=== PATIENT | female | born 1995 | race Caucasian/White ===

== ENCOUNTER 2017-06-08 18:14 | Emergency (ER) | payer BC, OTHER ==
[~2017-06-08] VITALS: Ht 162.6 cm; Wt 54.8 kg
[~2017-06-08 18:14] MED LIST: RIVA1TAB4 PO; [UNRECOGNIZED DRUG - CODE] PO
[2017-06-08 18:25] VITALS: TEMP 36.8; Ht 162.6 cm; Wt 54.8 kg
[2017-06-08] MEDS ORDERED: KETOROLAC TROMETHAMINE 30 MG/ML VIAL IV STA (19:37)
[2017-06-08] MEDS ORDERED: SODIUM CHLORIDE 0.9% 1000ML 1,000 ML IV ONE (19:45)
[2017-06-08 20:11] LABS: BASO % 0.2 %; BASO ABS # 0.02 K/uL (0-0.2); COMPLETE YES; EOS % 2.3 %; HEMATOCRIT 42.9 % (37-47); IG% 0.2 %; LYMPH ABS # 2.11 K/uL (1.2-3.4); MEAN CELL VOLUME 95.1 fL (80-100); MEAN CORPUSCULAR HEMOGLOBIN 33.3 pg (25-34); MEAN PLATELET VOLUME 8.9 fL (7.4-10.4); MONO % 11.2 %; NEUT % 67.1 %; PLATELET COUNT 234 K/uL (130-400); RED BLOOD COUNT 4.51 M/uL (4.2-5.4); WHITE BLOOD COUNT 11.11 K/uL (4.8-10.8)
[2017-06-08] MEDS ORDERED: OPTIRAY 320 IV PRN (20:15)
[2017-06-08 20:28] LABS: BUN/CREATININE RATIO 7.9 (10-20); CALCIUM 9.1 mg/dl (8.5-10.1); CREATININE 0.78 mg/dl (0.60-1.20); POTASSIUM 3.5 mmol/L (3.5-5.1)
[2017-06-08 20:31] LABS: ALB/GLOB RATIO 1.2 (0.9-2)
[2017-06-08] MEDS ORDERED: ONDANSETRON INJ 2 MG/ML 2 ML VIAL IV STA (20:39)
--- NOTE | 2017-06-08 21:24 | DIAGNOSTIC IMAGING REPORT ---
FACIAL-MAXILLOFACIAL WITH CLINICAL HISTORY: 22 years-old Female presenting with Right side facial pain after dental procedure. TECHNIQUE: Multidetector CT of the face was performed after the administration of intravenous contrast. IV contrast: 116 mL of Optiray 320. A dose lowering technique was used consistent with the principles of ALARA (as low as reasonably achievable). COMPARISON: 12/12/2014. CT DOSE (mGy.cm): The estimated cumulative dose is 128.47 mGy.cm. 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 Previously demonstrated comminuted displaced bilateral nasal bone fractures are no longer apparent. Extensive inflammatory change noted along the buccal mucosa of the mandibular and maxillary teeth with multifocal hyperdensities evident. These are of uncertain etiology. No significant cortical erosion of the mandible is evident. No periapical lucency noted at the maxillary or mandibular teeth. Paranasal sinuses and mastoid air cells clear. Limited intracranial evaluation within normal limits. Orbits normal. Prominence of the bilateral tonsillar and adenoidal lymphoid tissue, likely reactive. Resulting mild narrowing of the oropharynx. IMPRESSION: Inflammatory change along the buccal mucosa of the mandible and maxilla. No associated odontogenic or periapical abscess. Diffuse hyperattenuation within the inflammatory change may represent surgical material. Correlate with oral exam. Likely reactive enlargement of tonsillar and adenoidal lymphoid tissue with resulting mild narrowing of the oropharynx. Electronically signed by: Daniel Recinos M.D. 06/08/2017 9:23 PM Dictated Date/Time: 06/08/2017 9:17 PM
[2017-06-08] MEDS ORDERED: AMPICILLIN/SULBACTAM SOD INJ 3,000 MG in SODIUM CHLORIDE 0.9% 100ML 100 ML IV STA (21:32)
[2017-06-08] MEDS ORDERED: AMOX875T PO (22:23)
[2017-06-08 22:44] VITALS: BP 127/70; PULSE 85; O2SAT 100
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
== END 2017-06-08 22:45 | disposition home or self-care (01) ==
LOC: C.EDB 18:15
DX: K04.7 Periapical abscess without sinus (principal); F41.9 Anxiety disorder, unspecified; I26.99 Other pulmonary embolism without acute cor pulmonale; Z82.49 Family history of ischemic heart disease and other diseases of the circulatory system; F17.200 Nicotine dependence, unspecified, uncomplicated

== ENCOUNTER 2017-11-06 09:01 | Emergency (ER) | payer BC, OTHER ==
[~2017-11-06] VITALS: Ht 160 cm; Wt 55.7 kg
[2017-11-06 09:05] VITALS: Ht 160 cm; Wt 55.7 kg
[2017-11-06] MEDS ORDERED: TRAM-10 PO (09:25)
[2017-11-06] MEDS ORDERED: ONDANSETRON INJ 2 MG/ML 2 ML VIAL IV STA (09:30)
[2017-11-06] MEDS ORDERED: KETOROLAC TROMETHAMINE 30 MG/ML VIAL IV STA (09:30)
[2017-11-06] MEDS ORDERED: DEXAMETHASONE INJ 10 MG in SYRINGE 0 ML IV STA (09:30)
[2017-11-06] MEDS ORDERED: MoRPHine SULFATE 4 MG/ML 1 ML CARP\\VIAL IV STA ×2 (09:30→10:50)
[2017-11-06] MEDS ORDERED: DEXAMETHASONE **PF** INJ 10 MG/ML VIAL ONE (09:54)
[2017-11-06] MEDS ORDERED: METH4PAK PO (11:54)
[2017-11-06] MEDS ORDERED: OXYC1TAB3 PO (11:54)
[2017-11-06 12:15] VITALS: BP 118/77; PULSE 74; TEMP 36.4; O2SAT 100
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
== END 2017-11-06 12:16 | disposition home or self-care (01) ==
LOC: C.EDB 09:02 → C.EDC 12:16
DX: M54.16 Radiculopathy, lumbar region (principal); M41.9 Scoliosis, unspecified; F41.9 Anxiety disorder, unspecified; Z86.711 Personal history of pulmonary embolism; Z82.49 Family history of ischemic heart disease and other diseases of the circulatory system; Z83.3 Family history of diabetes mellitus; Z83.6 Family history of other diseases of the respiratory system; Z84.1 Family history of disorders of kidney and ureter; F17.200 Nicotine dependence, unspecified, uncomplicated

== ENCOUNTER 2017-12-03 09:15 | Emergency (ER) | payer BC, OTHER ==
[~2017-12-03] VITALS: Ht 162.6 cm; Wt 56.2 kg
[~2017-12-03 09:15] MED LIST changes: +OXYC1TAB3 PO; -RIVA1TAB4 PO; +TRAM-10 PO; -[UNRECOGNIZED DRUG - CODE] PO
[2017-12-03 09:21] VITALS: TEMP 36.5; Ht 162.6 cm; Wt 56.2 kg
[2017-12-03] MEDS ORDERED: SODIUM CHLORIDE 0.9% 1000ML 1,000 ML IV STA (09:46)
[2017-12-03] MEDS ORDERED: ONDANSETRON INJ 2 MG/ML 2 ML VIAL IV STA (09:46)
[2017-12-03] MEDS ORDERED: AMOX500C3 PO (09:51)
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
[2017-12-03 10:06] LABS: HEMATOCRIT 35.1 % (37-47); HEMOGLOBIN 12.5 g/dL (12.0-16.0); MEAN CELL VOLUME 90.2 fL (80-100); MEAN CORPUSCULAR HEMOGLOBIN 32.1 pg (25-34); MEAN CORPUSCULAR HGB CONC 35.6 g/dl (32-36); MEAN PLATELET VOLUME 7.9 fL (7.4-10.4); PLATELET COUNT 441 K/uL (130-400); RED CELL DISTRIBUTION WIDTH CV 12.2 % (11.5-14.5); WHITE BLOOD COUNT 9.41 K/uL (4.8-10.8)
[2017-12-03] MEDS: HYDROmorphone INJ 0.5 MG/0.5 ML SYR IV PRN ×4 (10:11→14:36)
[2017-12-03 10:23] LABS: ALBUMIN 3.5 gm/dl (3.4-5.0); ALT/SGPT 24 U/L (12-78); AST/SGOT 13 U/L (15-37); BLOOD UREA NITROGEN 10 mg/dl (7-18); CARBON DIOXIDE 24 mmol/L (21-32); CREATININE 0.76 mg/dl (0.60-1.20); GLUCOSE 78 mg/dl (70-99); LIPASE 110 U/L (73-393); POTASSIUM 3.4 mmol/L (3.5-5.1); SODIUM 137 mmol/L (136-145)
[2017-12-03 10:24] LABS: BASO % 0.4 %; BASO ABS # 0.04 K/uL (0-0.2); EOS ABS # 0.56 K/uL (0-0.5); IG# 0.07 K/uL (0.00-0.02); LYMPH ABS # 3.01 K/uL (1.2-3.4); MONO % 10.3 %; MONO ABS # 0.97 K/uL (0.11-0.59); NEUT % 50.6 %; NEUT ABS # 4.76 K/uL (1.4-6.5)
[2017-12-03 10:26] LABS: ALKALINE PHOSPHATASE 80 U/L (45-117); TOTAL PROTEIN 7.7 gm/dl (6.4-8.2)
--- NOTE | 2017-12-03 14:47 | DIAGNOSTIC IMAGING REPORT ---
MRI OF THE THORACIC SPINE WITH AND WITHOUT CONTRAST CLINICAL HISTORY: Recent surgery with hardware removal. Pain and swelling. COMPARISON STUDY: Chest CT August 30, 2016. TECHNIQUE: Utilizing a 1.5 Ivonne magnet and dedicated coil, multiplanar, multiecho imaging of the thoracic spine was performed pre and postcontrast administration. Injection of 5.5 cc of Gadavist IV was uneventful. FINDINGS: Vertebral body heights are maintained. There is no suspicious marrow replacement or marrow edema. No intracanalicular mass or fluid collection is present. Thoracic vertebral caliber are normal. There is no intracanalicular mass or fluid collection. A few perineural cyst/lateral meningoceles are noted. Central canal and neural foramen are patent. There is no disc herniation. There has been interval removal of the thoracolumbar spine scoliosis hardware from the T10-L4 levels. Multiple fluid collections are noted, including a small 1.9 x 0.6 cm subcutaneous fluid collection at the T7-T8 level. Note is made of a subcutaneous fluid collection that extends from the upper T12 level through the L5 level that measures 9 mm in AP dimension and 2.5 cm in transverse dimension. In addition, there is a deeper operative bed fluid collection immediately overlying the posterior elements that measures 1.3 cm in AP dimension and 5.1 cm in transverse dimension. This deeper fluid collection extends from the T11-L4 levels and is at the site of hardware removal. These collections demonstrate nonspecific peripheral enhancement. IMPRESSION: 1. Large operative bed fluid collection that extends from T11 through L4 and measures 1.3 cm in AP dimension and 5.1 cm in transverse dimension. This collection is at site of hardware removal and immediately posterior to the posterior elements. This collection is nonspecific and not unexpected if recent surgery. This could reflect a seroma. Less likely, this could reflect a resolving hematoma. A pseudomeningocele could appear similar although is considered less likely. Sterility cannot be assessed by MRI. 2. Subcutaneous fluid collection that extends from T12 through L5 as described above. This is also nonspecific although favors a seroma. Sterility cannot be assessed by MRI. 3. No intracanalicular abnormality. 4.. Additional third tiny subcutaneous fluid collection at T7-T8 level that measures 1.9 x 0.6 cm. Electronically signed by: Connor Monzon M.D. 12/03/2017 2:46 PM Dictated Date/Time: 12/03/2017 2:26 PM
--- NOTE | 2017-12-03 15:03 | DIAGNOSTIC IMAGING REPORT ---
MRI OF THE LUMBAR SPINE WITH AND WITHOUT CONTRAST CLINICAL HISTORY: recent surgery, pain and swelling COMPARISON STUDY: No previous studies for comparison. TECHNIQUE: Utilizing a 1.5 Ivonne magnet and dedicated coil, multiplanar, multiecho imaging of the lumbar spine was performed before and after uneventful IV administration of 5.5 mL of Gadavist. FINDINGS: There are postoperative findings consistent with recent scoliosis hardware removal from T10 through L4. There is no intracanalicular mass or fluid collection. Conus terminates at the upper L1 level. There is no abnormal intracanalicular enhancement. There is mild levoscoliosis of the lumbar spine. Vertebral body heights are maintained. There is no marrow edema or marrow replacement. Note is made of a subcutaneous fluid collection that extends from T 12 through L5 that has peripheral enhancement. This measures 8 mm in AP extent. There is also a deeper operative bed fluid collection that extends from T11 through L4 immediately posterior to the posterior elements at site of hardware removal. This collection measures 1.3 cm in AP dimension and demonstrates peripheral enhancement. L1-2: The central canal and neural foramen are patent. L2-3: The central canal neural foramen are patent. L3-4: The central canal and neural foramen are patent. L4-5: The central canal and neural foramen are patent. L5-S1: The central canal and neural foramen are patent. IMPRESSION: 1. Large operative bed fluid collection that extends from T11 through L4 and measures 1.3 cm in AP dimension and 5.1 cm in transverse dimension. This collection is at site of hardware removal and immediately posterior to the posterior elements. This collection is nonspecific and not unexpected in the early postoperative setting. This could reflect a seroma. Less likely, this could reflect a resolving hematoma. A pseudomeningocele could appear similar although is considered less likely. Sterility cannot be assessed by MRI. Paraspinal muscle edema enhancement which is nonspecific in the early postoperative setting. 2. Subcutaneous fluid collection that extends from T12 through L5 as described above. This is also nonspecific although favors a seroma. Sterility cannot be assessed by MRI. 3. No intracanalicular abnormality. 4.. Patent central canal and neural foramen. No disc herniation. Electronically signed by: Connor Monzon M.D. 12/03/2017 3:01 PM Dictated Date/Time: 12/03/2017 2:44 PM
[2017-12-03] MEDS ORDERED: OXYC1TAB3 PO (15:38)
[2017-12-03 16:23] VITALS: BP 109/66; PULSE 88; O2SAT 100
== END 2017-12-03 15:50 | disposition home or self-care (01) ==
LOC: C.EDB 09:17 → C.EDA 15:50
DX: M96.842 Postprocedural seroma of a musculoskeletal structure following a musculoskeletal system procedure (principal); G89.18 Other acute postprocedural pain; F17.200 Nicotine dependence, unspecified, uncomplicated; Z88.1 Allergy status to other antibiotic agents; Z88.6 Allergy status to analgesic agent; Z86.711 Personal history of pulmonary embolism; Z80.9 Family history of malignant neoplasm, unspecified; Z82.49 Family history of ischemic heart disease and other diseases of the circulatory system; Z84.1 Family history of disorders of kidney and ureter

== ENCOUNTER 2021-08-14 23:49 | Inpatient (IN) ==
[2021-08-15] MEDS ORDERED: OXYTOCIN 30 UNITS/500 ML BAG IV PRN ×3 (00:39→07:42)
[2021-08-15] MEDS ORDERED: CALCIUM CARBONATE 500 MG CHEWABLE TAB PO PRN (01:00)
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
[2021-08-15 01:25] LABS: Hematocrit (blood only) 33.7 % (37-47); Hemoglobin 11.6 g/dL (12.0-16.0); Mean Corpuscular Hemoglobin 32.1 pg (25-34); Mean Corpuscular Hgb Conc 34.4 g/dL (32-36); Mean Corpuscular Volume 93.4 fL (80-100); Mean Platelet Volume 9.1 fL (7.4-10.4); Platelet Count 251 K/uL (130-400); RDW Coefficient of Variation 12.9 % (11.5-14.5); RDW Standard Deviation 44.1 fL (36.4-46.3); Red Blood Count 3.61 M/uL (4.2-5.4); White Blood Count 7.97 K/uL (4.8-10.8)
[2021-08-15] MEDS: LACTATED RINGER'S 1,000 ML IV PRN ×2 (03:20→04:33)
[2021-08-15] MEDS ORDERED: ePHEDrine sulfate 50 MG/ML AMP ONE (03:37)
[2021-08-15] MEDS ORDERED: SODIUM CHLORIDE 0.9% INJ 10 ML VIAL ONE (03:37)
[2021-08-15] MEDS ORDERED: BUPIVACAINE 0.25% 30 ML VIAL ONE (03:37)
[2021-08-15] MEDS ORDERED: fentaNYL 2MCG/ML ROPIVACAINE 1.25MG/ML 100 ML BAG EPI ONE (03:38)
[2021-08-15] MEDS ORDERED: fentaNYL citrate 100 MCG/2 ML VIAL ONE (03:38)
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
[2021-08-15] MEDS ORDERED: fentaNYL 2MCG/ML ROPIVACAINE 1.25MG/ML 100 ML BAG EPI PRN (04:34)
[2021-08-15] MEDS ORDERED: ONDANSETRON INJ 2 MG/ML 2 ML VIAL IV PRN (04:34)
[2021-08-15] MEDS ORDERED: NALOXONE HCL 0.4 MG/1 ML VIAL/CARP IV PRN (04:34)
[2021-08-15] MEDS ORDERED: ePHEDrine sulfate 50 MG/ML AMP IV PRN (04:34)
[2021-08-15] MEDS ORDERED: NALOXONE HCL 1 MG in SODIUM CHLORIDE 0.9% 1000ML 1,000 ML IV PRN (04:34)
[2021-08-15] MEDS ORDERED: ACETAMINOPHEN 325 MG TAB ONE (07:27)
--- NOTE | 2021-08-15 07:32 | Delivery Summary ---
Vaginal Delivery Summary Date of Service August 15, 2021 Vaginal Delivery Summary [facility] PREOPERATIVE DIAGNOSIS: 1. Single intrauterine at 37 5/7 wga 2. Spontaneous rupture of membranes 3. History of pulmonary embolism POSTOPERATIVE DIAGNOSIS: 1. Single intrauterine at 37 5/7 wga 2. Spontaneous rupture of membranes 3. History of pulmonary embolism 4. Delivered PROCEDURE: 1. Normal spontaneous vaginal delivery. SURGEON: Josefina Avendano MD ANESTHESIA: Epidural. ESTIMATED BLOOD LOSS: 300 mL FLUIDS: Continuous LR. URINE OUTPUT: None. COMPLICATIONS: None. CONDITION: Stable. INDICATIONS: 26 y/o at 37 5/7 wga presented with complaints of leaking of fluid earlier this morning. On arrival, she was found to be grossly ruptured. +FM and some back pain, denied vaginal bleeding. She was managed expectantly and progressed spontaneously. She received an epidural for pain control. She then progressed to complete and desired to push. FINDINGS: A viable female infant, weight pending with Apgars of 7 and 8 at 1 and 5 minutes respectively. SPECIMEN: Cord blood. OPERATIVE REPORT: The patient progressed to 10 cm, 100% effaced and +2 station, pushed over intact perineum with anesthesia to deliver a viable female infant, weight and Apgars as above. Head of delivered in ROSETTE position. Nuchal cord was noted and delivered through. Body and shoulders were delivered without difficulty. was delivered to maternal abdomen and nursing staff. Delayed cord clamping was deferred as infant was not vigorous. Cord was clamped and cut. Cord segment and blood were obtained with plan for cord gases however could not be obtained. Placenta delivered spontaneously intact with 3-vessel cord. IV oxytocin and fundal massage were given for excellent hemostasis. Vagina, cervix, perineum, and placenta were inspected. A left labial laceration was noted and repaired using 4-0 Vicryl. A first degree was noted and not needed to be repaired. Sponge and needle counts correct x2. No sponges were left behind. Mother and stable in immediate period. [facility] Vaginal Delivery Charge Vaginal Delivery Codes: 92549 global code for the antepartum, delivery, and post - Delivery Type Details: [facility]
[2021-08-15] MEDS ORDERED: HYDROCORTISONE ACETATE 25 MG SUPP PR PRN (07:42)
[2021-08-15] MEDS ORDERED: BENZOCAINE 20% AER SPR 82.5 GM CAN EXT PRN (07:42)
[2021-08-15] MEDS ORDERED: SUPERCREAM 0.870% 15 GM JAR EXT PRN (07:42)
[2021-08-15] MEDS ORDERED: DIPHTHERIA/TETANUS/PERTUSSIS 0.5 ML SYR/VIAL IM ONE (07:42)
[2021-08-15] MEDS ORDERED: bisacodyL 10 MG SUPP PR PRN (07:42)
[2021-08-15] MEDS: PRENATAL VITAMIN 1 TAB PO SCH (09:08)
[2021-08-15] MEDS ORDERED: Nursing to Pharmacy Communication SCH (09:15)
[2021-08-15] MEDS ORDERED: LOVENOX TEACHING KIT SCH (09:30)
[2021-08-15] MEDS: VENLAFAXINE HCL 37.5 MG TAB PO SCH (09:35)
--- NOTE | 2021-08-15 09:37 | Anesthesia Procedure Note ---
Date of Service August 15, 2021 Anesthesia Post Epidural Note Vital Signs Vital Signs: Temp Pulse Resp BP Pulse Ox 36.9 C 109 H 20 126/72 94 08/15/21 06:14 08/15/21 09:30 08/15/21 08:15 08/15/21 09:30 08/15/21 06:54 Notes Mental Status: alert / awake / arousable and participated in evaluation Nausea / Vomiting: adequately controlled Pain: adequately controlled Airway Patency, RR, SpO2: stable & adequate BP & HR: stable & adequate Hydration State: stable & adequate Neuraxial Anesthesia: was administered and sensory block is resolving Anesthetic Complications: no major complications apparent and Pt Satisfied with anesthetic care Epidural: Removed without complications and With tip intact
[2021-08-15] MEDS: ENOXAPARIN INJ 40 MG/0.4 ML SYR SQ SCH (09:38)
[2021-08-15] MEDS: DOCUSATE SODIUM 100 MG CAP PO SCH ×2 (11:04→20:12)
[2021-08-15] MEDS: IBUPROFEN 600 MG TAB PO PRN ×3 (12:04→20:52)
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
[2021-08-15] MEDS: ACETAMINOPHEN 325 MG TAB PO PRN ×2 (15:49→23:54)
[2021-08-16] MEDS: IBUPROFEN 600 MG TAB PO PRN ×2 (02:23→08:22)
--- NOTE | 2021-08-16 07:02 | Obstetrical Progress Note ---
Date of Service August 16, 2021 Assessment & Plan (1) History of pulmonary embolism: (2) care and examination of lactating mother: Doing well. Routine ppd#1 care. Continue teaching for lovejcx. Script sent to her pharmacy. Appreciate hematology input. Subjective Ambulation: ambulating normally Voiding: no voiding problems Passing Gas:: Yes Diet Tolerance:: regular diet Lochia:: Small Feeding Type:: breast feeding Physical Exam Constitutional WD/WN, vitals as above Cardiovascular Extremities: no calf tenderness and no edema Gastrointestinal (Abdomen) soft, nt, nd ff/nt at u Results & Data ([facility]) Vital Signs (Past 12 Hours) Vital Signs Temp Pulse Resp BP Pulse Ox 08/16/21 03:10 36.4 C L 80 18 122/77 100 08/15/21 23:35 36.6 C 84 16 110/63 100
[2021-08-16] MEDS: DOCUSATE SODIUM 100 MG CAP PO SCH (08:22)
[2021-08-16] MEDS: PRENATAL VITAMIN 1 TAB PO SCH (08:22)
[2021-08-16] MEDS: VENLAFAXINE HCL 37.5 MG TAB PO SCH (08:22)
[2021-08-16] MEDS: ENOXAPARIN INJ 40 MG/0.4 ML SYR SQ SCH (08:23)
[2021-08-16] MEDS ORDERED: bisacodyL 5 MG TABEC PO SCH (20:00)
[2021-08-20 23:51] LABS: Activated Protein C Resistance 4.4 ratio (>=2.1); Anti Cardiolipin Ab IgG <2.0 GPL-U/mL; Anti Cardiolipin Ab IgM <2.0 MPL-U/mL; Anti-Cardiolipin Ab IgA <2.0 APL-U/mL; Anti-Thrombin III Activity 94 % normal (80-135); B2 Glycoprotein IgA <2.0 U/mL (<20.0); B2 Glycoprotein IgG <2.0 U/mL (<20.0); B2 Glycoprotein IgM <2.0 U/mL (<20.0); PTT LA Screen 34 sec (<=40); Protein S Functional(Activity) 34 % (60-140)
[2021-08-22 17:26] LABS: Factor 5 Mutation NEGATIVE
== END 2021-08-16 14:20 | disposition home or self-care (01) | DRG 805 ==
LOC: OPB 23:49 → 4S1 23:53 → 4S2 08-15 10:55

== ENCOUNTER 2025-07-07 19:16 | Inpatient (IN) ==
[2025-07-07] MEDS: ONDANSETRON INJ 2 MG/ML 2 ML VIAL IV STA (19:56)
[2025-07-07] MEDS: SODIUM CHLORIDE 0.9% 1,000 ML IV SCH (19:57)
--- NOTE | 2025-07-07 20:00 | Emergency Department Note ---
Impression & Plan Hypotension, Diarrhea, Tachycardia, Acute dehydration, Adverse effect of chemotherapy, Hypocalcemia ED Provider Note NAME: ALEJANDRO BOUCHER AGE: 30 SEX: F : 1995 ARRIVES VIA: Walk-In INFORMANT: [Patient][family] ED PROVIDER(S): [Lokesh Slade MD] CHIEF COMPLAINT: Illness HISTORY OF PRESENT ILLNESS: The patient is a 30-year-old female with metastatic breast cancer. The cancer is spread to her liver and bone. She was in our ED 2 days ago for an allergic reaction from her second chemotherapy. The patient was discharged as she seemed to improve and did well. The patient states that for the last 2 days, she has had diarrhea, sometimes she has had some streaks of blood in the diarrhea. She has had nausea without any appetite. She has been dizzy and lightheaded and has felt faint. No actual vomiting. There has been no fever, no cough. She has some colicky abdominal pain associated with the diarrhea. No urinary complaints. PMHx/PSHx/Social Hx: See Below PHYSICAL EXAM: GENERAL: Patient is in no acute distress. HEENT: No acute trauma, normocephalic atraumatic, mucous membranes moist, no nasal congestion. NECK: No stridor, no adenopathy, no meningismus, trachea is midline. LUNGS: Clear to auscultation bilaterally, no wheeze, no rhonchi, breath sounds equal. HEART: Tachycardic with a regular rhythm, no murmurs. ABDOMEN: Soft, nontender, no peritonitis. EXTREMITIES: No cyanosis, full range of motion of all the joints without pain or difficulty. Mild bilateral pedal edema. NEUROLOGIC: Oriented x 3, no acute motor or sensory deficits, no focal weakness. SKIN: No jaundice, no diaphoresis. DIFFERENTIAL DIAGNOSIS: Dehydration, electrolyte imbalance, chemotherapy reaction, foodborne or viral illness, bacteremia or sepsis, among others. EMERGENCY DEPARTMENT PROCEDURES: MEDICAL DECISION MAKING: There is a pancytopenia, likely from her chemotherapy administration. Sodium was somewhat low, calcium was low. No renal failure. Lactic acid level was not elevated making severe sepsis less likely. There were some subtle liver enzyme elevations, likely from dehydration. TSH was high but the T4 was normal. ECG showed a sinus tachycardia, no ischemia. Cardiac enzyme testing x 1 is not consistent with acute cardiac injury. Total CK was not elevated making rhabdomyolysis unlikely. Chest x-ray did not show pneumonia or CHF. On exam, the patient was initially hypotensive and tachycardic. She was not febrile. The patient was given IV saline, 1 L. She was given IV lactated Ringer's 1 L. Her heart rate has improved, her blood pressure has improved. The patient received IV Phenergan and IV Zofran, she was given 2 g of IV calcium. The patient needs to stay in the hospital for further hydration, observation and care. I did speak with the patient and the family. The patient presents today dehydrated. Certainly, the chemotherapy regimen from a few days ago could be responsible for her presentation. Foodborne or viral illness is also possible. I spoke with case management, the on-call hospitalist was consulted. Prior/Outside records/notes reviewed: Previous ED visit note describing her presentation, findings and outpatient plan. ECG per my interpretation: Indication was tachycardia. The ECG shows a sinus tachycardia with a rate of 132. There is no ST elevation, no PVCs. The QTc is 432. Continuous Cardiac Monitoring per my interpretation: An order was placed for continuous cardiac monitoring. The monitor shows a rate of 131 with sinus tachycardia. Imaging/x-ray results per my interpretation: Chest x-ray does not show pneumonia or CHF. No mediastinal widening. Chronic Medical/Social conditions affecting care: History of breast cancer that has metastasized to the bones and liver. Care/Management discussed with: Case management and the on-call hospitalist. Level of care consideration(s): After review of the information above and other included data: --I believe the patient requires escalation of care to admission Critical Care Note: I have personally spent 49 minutes of critical care time in the direct management of this patient. This includes bedside care, interpretation of diagnostic studies, and testing, discussion with consultants, patient, and family members, and other required patient management activities. This 49 minutes is in excess of all separately billable procedures. DISPOSITION: Admission Past Med/Surg History Problem List (Updated 07/07/25 @ 22:33 by Lokesh Slade MD) Hypocalcemia (Acute) Adverse effect of chemotherapy (Acute) Acute dehydration (Acute) Tachycardia (Acute) Diarrhea (Acute) Hypotension (Acute) Near syncope (Acute) Headache (Acute) Hypocalcemia (Acute) Colitis Diarrhea (Acute) GI (gastrointestinal bleed) (Acute) Thyroid cancer Encounter for monitoring cardiotoxic drug therapy Chronic, continuous use of opioids Therapeutic opioid-induced constipation (OIC) Chemotherapy-induced neuropathy Thrush of mouth and esophagus Malignant neoplasm of breast metastatic to bone (Chronic) Advanced care planning/counseling discussion Nausea & vomiting Chronic pain after cancer treatment Cancer related pain Palliative care patient Adenocarcinoma of breast metastatic to liver Metastatic cancer to bone (Acute) Generalized anxiety disorder with panic attacks Bone lesion Breast mass (Acute) Liver lesion Ovarian mass, left Urinary tract infection symptoms Vaginitis Abnormal uterine bleeding Scoliosis (Acute) History of back surgery (Acute) Dental infection (Acute) Medical History Back pain Abdominal pain Generalized body aches Generalized weakness Abnormal liver ultrasound Elevated parathyroid hormone Elevated TSH Alkaline phosphatase elevation Right lumbar radiculitis History of pulmonary embolism 06/2016 tx w/ xarelto, no current anticoagulation. Sounds unprovoked Abnormal barium swallow Sore throat Encounter for pre-operative examination Ectopic SROM (spontaneous rupture of membranes) Anxiety Surgical History Port-A-Cath in place (05/23/25) Insertion of Left Internal Jugular Access Port(Left) - Mushtaq Alvarez DO, FACS History of thyroidectomy Previous back surgery Rods placed and removed Family History Grandmother (Maternal) Breast cancer Other No pertinent family history in first degree relatives Denies family history of Ovarian cancer Deep vein thrombosis Clotting disorder Colorectal cancer Pulmonary embolism Social History Smoking Status: Current every day smoker Tobacco Type: E-cigarettes / Vaping Second Hand Exposure: No; Do You Dip or Chew Tobacco: No; Hx Alcohol Use: No Hx Substance Use: No Preferred Language: Qatari Communication Ability: Effective Plastic Cutter Required: No Beliefs That Will Affect Care: None marital status: Single marital status details: does not want FOB listed. 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 Feels Safe at Home: Yes Diet: regular during the past year weight has: remained stable Assistive Devices: Glasses Allergies Allergies Allergy/AdvReac Type Severity Reaction Status Date / Time Cephalosporins Allergy Severe FACIAL Verified 06/13/25 08:31 SWELLING/HIVES vancomycin AdvReac Intermediate RED MAN Verified 06/13/25 08:31 SYNDROME Home Meds Home Medications Medication Instructions Recorded Confirmed methadone 10 mg tablet 30 mg PO Q8H 06/30/25 07/04/25 calcium 500 mg (as 1 tab PO BID 07/01/25 07/04/25 carbonate)-vitamin D3 5 mcg (200 unit) tablet (Oyster Shell Calcium-Vitamin D3) dexamethasone 6 mg tablet 3 mg PO BID 07/01/25 07/04/25 diclofenac sodium 1 % topical gel 4 g topical QID 07/01/25 07/04/25 (Arthritis Pain (diclofenac)) hydrocortisone 1 % topical cream 1 applic topical BID 07/01/25 07/04/25 lactulose 10 gram/15 mL oral 20 g PO DAILY PRN Constipation 07/01/25 07/04/25 solution lidocaine-prilocaine 2.5 %-2.5 % 1 applic topical DAILY PRN 1 Hour 07/01/25 07/04/25 topical cream prior to port access lorazepam 1 mg tablet 1 mg PO QID PRN 07/01/25 07/04/25 Anxiety/Panic/Nausea polyethylene glycol 3350 17 gram 17 g PO DAILY 07/01/25 07/01/25 oral powder packet prochlorperazine maleate 10 mg 10 mg PO Q6H PRN Nausea And 07/01/25 07/04/25 tablet Vomiting venlafaxine 75 mg tablet 75 mg PO QAM 07/01/25 07/01/25 zolpidem 10 mg tablet 10 mg PO HS PRN Sleep 07/01/25 07/01/25 levothyroxine 150 mcg tablet 112 mcg PO Q24H 07/04/25 (Synthroid) propranolol 20 mg tablet 20 mg PO BID 07/04/25 07/04/25 Previous Rx's Medication Instructions Recorded naloxone 4 mg/actuation nasal 1 spray intranasal Q3M #2 ea 05/28/25 spray (Narcan) ondansetron 8 mg disintegrating 8 mg PO DAILY sev cancer nausea 1 05/30/25 tablet month #90 tabs hydromorphone 8 mg tablet 8 mg PO Q4H PRN pain 1 month #180 06/13/25 (Dilaudid) tabs methylnaltrexone 8 mg/0.4 mL 8 mg (0.4 mL) subcut DAILY PRN 06/14/25 subcutaneous syringe (Relistor) opioid induced constipation 1 month #12 mL pantoprazole 40 mg tablet,delayed 40 mg PO BID #60 tabs 06/27/25 release pregabalin 100 mg capsule (Lyrica) 100 mg PO TID chemo neuropathy 30 06/27/25 days #90 caps promethazine 25 mg tablet 25 mg PO QID PRN nausea and 06/27/25 vomiting 1 month #120 tabs sennosides 8.6 mg-docusate sodium 2 tab-cap (2 x 8.6-50 mg) PO BID 07/04/25 50 mg capsule (Senna Plus) constipation 1 month #120 caps Results & Data (ED) Vital Signs Vital Signs - 24 hr 07/07/25 19:20 07/07/25 19:32 07/07/25 20:08 Temperature 36.3 C L Temperature Source Oral Pulse Rate 149 H 135 H Pulse Rate [Right Finger] 119 H Respiratory Rate 15 Blood Pressure 80/52 L Blood Pressure [Right Arm] 114/77 Blood Pressure Mean 61 Blood Pressure Mean [Right Arm] 89 Pulse Oximetry 100 98 Oxygen Delivery Method Room Air Room Air Sepsis Recent Fever Within 48 Hours No Sepsis New/Unexplained Change in Mental Status No Sepsis Action Taken by Nursing No Action Required 07/07/25 20:08 07/07/25 21:00 Temperature Temperature Source Pulse Rate Pulse Rate [Right Finger] 108 H Respiratory Rate 15 Blood Pressure Blood Pressure [Right Arm] 120/72 Blood Pressure Mean Blood Pressure Mean [Right Arm] 88 Pulse Oximetry 98 98 Oxygen Delivery Method Room Air Room Air Sepsis Recent Fever Within 48 Hours Sepsis New/Unexplained Change in Mental Status Sepsis Action Taken by Snf Medications Current Medication List: was personally reviewed by me Laboratory Data Attestation: I reviewed the patient's lab results. 07/07/25 19:57 07/07/25 19:57 Lab Results 07/07/25 Range/Units 19:57 WBC 3.85 L (4.8-10.8) K/ul RBC 3.37 L (4.20-5.40) M/uL Hgb 10.6 L (12.0-16.0) g/dl Hct 31.2 L (37.0-47.0) % MCV 92.6 (80.0-100.0) fL MCH 31.5 (25.0-34.0) pg MCHC 34.0 (32.0-36.0) g/dL RDW Std Deviation 59.1 H (36.4-46.3) fL RDW Coeff of Lesa 18.5 H (11.5-14.5) % Plt Count 123 L (130-400) K/uL MPV 9.0 L (9.4-12.4) fL Absolute Nucleated RBC 0.13 H (0.00-0.12) K/uL Nucleated RBC % (auto) 3.4 % Neutrophils % (Manual) 44 % Lymphocytes % (Manual) 25 % Monocytes % (Manual) 8 % Eosinophils % (Manual) 16 % Metamyelocytes % (Man) 2 % Myelocytes % (Man) 5 % Neutrophils # (Manual) 1.69 (1.40-6.50) K/uL Total Absolute Neuts 1.69 (1.4-6.5) K/uL Lymphocytes # (Manual) 0.96 L (1.2-3.4) K/uL Total Abs Lymphocytes 0.96 L (1.2-3.4) K/uL Monocytes # (Manual) 0.31 (0.11-0.59) K/uL Eosinophils # (Manual) 0.62 H (0-0.50) K/uL Metamyelocytes # (Man) 0.08 H (0-0) K/uL Myelocytes # (Manual) 0.19 H (0-0) K/uL Toxic Vacuolation 2+ Dohle Bodies 1+ Polychromasia 1+ Sodium 131 L (136-145) mmol/L Potassium 3.5 (3.5-5.1) mmol/L Chloride 98 (98-107) mmol/L Carbon Dioxide 26 (21-32) mmol/L Anion Gap 7 (3-11) BUN 12 (6-23) mg/dl Creatinine 0.67 (0.6-1.2) mg/dl Est Cr Clr Drug Dosing 122.3 ml/min eGFR 119.02 BUN/Creatinine Ratio 17.9 (10-20) Glucose 100 H (70-99(Fasting)) mg/dl Lactate 1.0 (0.4-2.0) mmol/L Calcium 7.5 L (8.6-10.3) mg/dl Magnesium 1.7 (1.7-2.4) mg/dl Total Bilirubin 1.9 H (0.2-1.0) mg/dl AST 12 L (13-39) U/L ALT 26 (7-52) U/L Alkaline Phosphatase 63 (34-104) U/L Total Creatine Kinase 45 (26-192) U/L Troponin I High Sens 6.0 (0-14) pg/ml Total Protein 5.0 L (6.0-8.3) gm/dl Albumin 2.5 L (3.4-5.0) gm/dl Globulin 2.5 (2.5-4.0) gm/dl Albumin/Globulin Ratio 1.0 (0.9-2) TSH 5.575 H (0.300-4.500) uIu/ml Free T4 0.87 (0.61-1.60) ng/dl Administered Medications Discontinued Medications Sodium Chloride (Nss) 1,000 mls @ 999 mls/hr IV .Q1H1M JOSEFA Stop: 07/07/25 20:45 Last Infusion: 07/07/25 20:53 Dose: Infused Documented By: Admin: 07/07/25 19:57 Dose: 999 mls/hr Documented By: ASW Promethazine HCl (Phenergan) 6.25 mg in 50.25 mls @ 201 mls/hr IV NOW STA Stop: 07/07/25 20:02 Last Infusion: 07/07/25 20:28 Dose: Infused Documented By: Admin: 07/07/25 20:10 Dose: 201 mls/hr Documented By: ASW Calcium Gluconate () 1,000 mg in 60 mls @ 240 mls/hr IV Q15M JOSEFA Stop: 07/07/25 21:14 Last Infusion: 07/07/25 21:37 Dose: Infused Documented By: Admin: 07/07/25 21:15 Dose: 240 mls/hr Documented By: Infusion: 07/07/25 21:14 Dose: Infused Documented By: Admin: 07/07/25 20:59 Dose: 240 mls/hr Documented By: ASW Lactated Ringer's (Lr) 1,000 mls @ 999 mls/hr IV .Q1H1M ONE Stop: 07/07/25 21:51 Last Infusion: 07/07/25 22:12 Dose: Infused Documented By: Admin: 07/07/25 20:59 Dose: 999 mls/hr Documented By: ELIZAW Ondansetron HCl (Ondansetron Inj 2 Mg/Ml 2 Ml Vial) 4 mg IV NOW STA Stop: 07/07/25 19:34 Last Admin: 07/07/25 19:56 Dose: 4 mg Documented By: ELIZAW Discharge Plan Visit Data Chief Complaint: Illness Stated Complaint: DEHYDRATED NAUSEA NOT EATING/DRINKING ED Provider: Lokesh Slade Discharge Problem: Hypotension, Diarrhea, Tachycardia, Acute dehydration, Adverse effect of chemotherapy, Hypocalcemia Patient Disposition: Admitted As Inpatient Condition: Serious Forms Stand Alone Forms: [facility] Prescriptions Prescriptions: No Action levothyroxine [Synthroid] 150 mcg tablet 112 mcg PO Q24H Relistor 8 mg/0.4 mL syringe 8 mg subcut DAILY PRN (Reason: opioid induced constipation) 30 Days Qty: 12 6RF ondansetron 8 mg tablet,disintegrating 8 mg PO DAILY 30 Days Qty: 90 5RF hydromorphone [Dilaudid] 8 mg tablet 8 mg PO Q4H PRN (Reason: pain) 30 Days Qty: 180 0RF Senna Plus 8.6-50 mg capsule 2 tab-cap PO BID 30 Days Qty: 120 3RF pantoprazole 40 mg tablet,delayed release (DR/EC) 40 mg PO BID Qty: 60 4RF pregabalin [Lyrica] 100 mg capsule 100 mg PO TID 30 Days Qty: 90 5RF promethazine 25 mg tablet 25 mg PO QID PRN (Reason: nausea and vomiting) 30 Days Qty: 120 4RF methadone 10 mg tablet 30 mg PO Q8H polyethylene glycol 3350 17 gram powder in packet 17 g PO DAILY dexamethasone 6 mg tablet 3 mg PO BID prochlorperazine maleate 10 mg tablet 10 mg PO Q6H PRN (Reason: Nausea And Vomiting) lidocaine-prilocaine 2.5-2.5 % cream 1 applic topical DAILY PRN (Reason: 1 Hour prior to port access) hydrocortisone 1 % cream 1 applic topical BID lorazepam 1 mg tablet 1 mg PO QID PRN (Reason: Anxiety/Panic/Nausea) lactulose 10 gram/15 mL solution 20 g PO DAILY PRN (Reason: Constipation) calcium carbonate-vitamin D3 [Oyster Shell Calcium-Vit D3] 500 mg-5 mcg (200 unit) tablet 1 tab PO BID Patient Comments: Unable to verify OTC meds at this date/time. 07/01/25 diclofenac sodium [Arthritis Pain (diclofenac)] 1 % gel 4 g topical QID Rx Instructions: APPLY 4 GRAMS TOPICALLY 4 TIMES DAILY TO HIP ,SINGLE KNEE , ANKLE, FOOT (INCLUDING SOLE , TOES, TOP OF FOOT) FOR PAIN FOR 1 MONTH venlafaxine 75 mg tablet 75 mg PO QAM zolpidem 10 mg tablet 10 mg PO HS PRN (Reason: Sleep) propranolol 20 mg tablet 20 mg PO BID naloxone [Narcan] 4 mg/actuation spray,non-aerosol 1 spray intranasal Q3M Qty: 2 0RF Referrals Referrals: Rylan Richard PA-C [Primary Care Provider] - Discharge Problem: Hypotension Qualifiers: Hypotension type: unspecified hypotension type Qualified Code(s): I95.9 - Hypotension, unspecified Diarrhea Qualifiers: Diarrhea type: unspecified type Qualified Code(s): R19.7 - Diarrhea, unspecified Adverse effect of chemotherapy Qualifiers: Encounter type: subsequent encounter Qualified Code(s): T45.1X5D - Adverse effect of antineoplastic and immunosuppressive drugs, subsequent encounter
[2025-07-07] MEDS: PROMETHAZINE 6.25 MG/50.25 ML BAG IV STA (20:10)
[2025-07-07 20:39] LABS: Alanine Aminotransferase 26.0 U/L (7-52); Albumin Globulin Ratio 1.0 (0.9-2); Albumin Level 2.5 gm/dl (3.4-5.0); Alkaline Phosphatase 63.0 U/L (34-104); Anion Gap 7.0 (3-11); Bilirubin,Total 1.9 mg/dl (0.2-1.0); Blood Urea Nitrogen 12.0 mg/dl (6-23); Calcium 7.5 mg/dl (8.6-10.3); Carbon Dioxide 26.0 mmol/L (21-32); Chloride 98.0 mmol/L (98-107); Creatine Kinase 45.0 U/L (26-192); Creatinine Clr Calc Pharmacy 122.3 ml/min; Globulin 2.5 gm/dl (2.5-4.0); Glucose 100.0 mg/dl (70-99(Fasting)); Magnesium 1.7 mg/dl (1.7-2.4); Potassium 3.5 mmol/L (3.5-5.1); Sodium 131.0 mmol/L (136-145); Total Protein 5.0 gm/dl (6.0-8.3)
[2025-07-07 20:44] LABS: ALC (manual) 0.96 K/uL (1.2-3.4); ANC (manual) 1.69 K/uL (1.4-6.5); Dohle Bodies 1+; Hematocrit (blood only) 31.2 % (37.0-47.0); Hemoglobin 10.6 g/dl (12.0-16.0); Mean Corpuscular Hemoglobin 31.5 pg (25.0-34.0); Mean Corpuscular Volume 92.6 fL (80.0-100.0); Platelet Count 123 K/uL (130-400); Polychromasia 1+; RDW Standard Deviation 59.1 fL (36.4-46.3); Red Blood Count 3.37 M/uL (4.20-5.40); Toxic Vacuolation 2+; White Blood Count 3.85 K/ul (4.8-10.8)
[2025-07-07 20:55] LABS: Thyroid Stimulating Hormone 5.575 uIu/ml (0.300-4.500)
[2025-07-07] MEDS: LACTATED RINGER'S 1,000 ML IV ONE (20:59)
[2025-07-07] MEDS: CALCIUM GLUCONATE 1,000 MG/60 ML BAG IV SCH (20:59)
[2025-07-07 21:55] LABS: T4 Free Thyroxine 0.87 ng/dl (0.61-1.60)
--- NOTE | 2025-07-07 22:51 | XRay Report ---
Exam(s): XR CXR 1 VIEW EXAM: XR Chest, 1 View CLINICAL HISTORY: Reason for exam: weakness. TECHNIQUE: Frontal view of the chest. COMPARISON: July 05, 2025. FINDINGS: Lungs: Unremarkable. No acute infiltration, atelectasis or mass. Pleural space: Unremarkable. No pneumothorax or pleural fluid. Heart: Unremarkable. No cardiomegaly. Mediastinum: Unremarkable. Normal mediastinal contour. Bones/joints: No acute findings. Tubes, lines and devices: An infusion port and catheter are stable. IMPRESSION: No acute findings in the chest. Electronically signed by: Reza Cortez MD 07/07/25 22:51 PM
[2025-07-08] MEDS: MAGNESIUM SULFATE / D5W 1 GM/100 ML BAG IV ONE (00:02)
[2025-07-08] MEDS: POTASSIUM CHLORIDE / WTR 10 MEQ/100 ML PLCT IV SCH (00:02)
--- NOTE | 2025-07-08 00:03 | History & Physical Report ---
Date of Service July 07, 2025 Assessment & Plan (1) Tachycardia: Plan: 30-year-old female with metastatic breast cancer with metastatic to liver and bone ongoing chemo radiation/steroid treatment, history of papillary thyroid cancer status post surgery/ongoing RAIU therapy, postsurgical hypothyroidism, chronic cancer pain on methadone, scoliosis, urolithiasis, anxiety/mood disorder, history of PE status post anticoagulation presents with diarrhea and abdominal pain going on since last Tuesday. Patient was in the ER on 07/05/2025 when she had a reaction while getting chemo and did okay and got discharged. That day chemo was not given because of the reaction. Because of ongoing diarrhea several times associated with abdominal pain and small amount of blood in the rectum she came to the ER today. Says she is not eating or drinking , appetite is not great. Was nauseous. In the ER is she is tachycardic. Denies any fevers. No chest pain or shortness of breath. No headache no runny nose or sore throat. No cough. Patient was recently admitted in the hospital on 06/30/2024 and was discharged on 07/02/2025. At the time admitted for bloody diarrhea and CAT scan showed colitis and she was status post colonoscopy and biopsy of the proctitis and sigmoid colitis. Pathology came back as colitis but not in favor of ischemic colitis. Tachycardia Acute dehydration Ongoing diarrhea and nausea Poor oral intake Lactic acid okay Continue IV fluids Continue home propranolol. gave one dose as she didnot take at home today Will monitor Abdominal pain Diarrhea Mild rectal bleed Had colonoscopy 06/21/2025 which showed internal hemorrhoids and localized inflammation in the rectum and sigmoid colon and biopsy showed colitis. Hemoglobin stable at 10.6 Will follow labs Will follow stool studies N.p.o., IV fluids, pain control Consult GI in a.m. Hyponatremia Sodium 131 Will follow repeat labs Pancytopenia mostly from chemo and cancer will follow labs Cancer pain Continue home pain medications Metastatic breast cancer to liver and bone Following with heme-onc and radiation oncolgy On chemo History of PE Completed anticoagulation in the past as per records Follow-up with heme-onc History of papillary thyroid cancer S/p surgery/ongoing RAIU therapy Postsurgical hypothyroidism On Synthyroid Anxiety/mood disorder On venlafaxine Ativan as needed DVT prophylaxis SCDs for now Disposition Telemetry Full code. History of Present Illness Chief Complaint: Diarrhea and abdominal pain Primary Care Provider: Rylan Richard PA-C 30-year-old female with metastatic breast cancer with metastatic to liver and bone ongoing chemo radiation/steroid treatment, history of papillary thyroid cancer status post surgery/ongoing RAIU therapy, postsurgical hypothyroidism, chronic cancer pain on methadone, scoliosis, urolithiasis, anxiety/mood disorder, history of PE status post anticoagulation presents with diarrhea and abdominal pain going on since last Tuesday. Patient was in the ER on 07/05/2025 when she had a reaction while getting chemo and did okay and got discharged. T chemo was not given because of the reaction. Because of ongoing diarrhea several times associated with abdominal pain and small amount of blood in the rectum she came to the ER today. Says she is not eating or drinking , appetite is not great. Was nauseous. In the ER is she is tachycardic. Denies any fevers. No chest pain or shortness of breath. No headache no runny nose or sore throat. No cough. Patient was recently admitted in the hospital on 06/30/2024 and was discharged on 07/02/2025. At the time admitted for bloody diarrhea and CAT scan showed colitis and she was status post colonoscopy and biopsy of the proctitis and sigmoid colitis. Pathology came back as colitis but not in favor of ischemic colitis. Past medical history present mentioned above Past surgical history. Total thyroidectomy. Multiple [place] [facility] [place] A port placement. Family history. Thyroid disorder. Asthma. Social history. Vape use. Occasional alcohol use. Allergies Allergy/AdvReac Type Severity Reaction Status Date / Time Cephalosporins Allergy Severe FACIAL Verified 06/13/25 08:31 SWELLING/HIVES vancomycin AdvReac Intermediate RED MAN Verified 06/13/25 08:31 SYNDROME Home Medications Medication Instructions Recorded Confirmed Type calcium 500 mg (as 1 tab PO BID 07/07/25 07/07/25 History carbonate)-vitamin D3 5 mcg (200 unit) tablet (Oyster Shell Calcium-Vitamin D3) hydrocortisone 1 % topical cream 1 applic [place] BID 07/07/25 07/07/25 History hydromorphone 8 mg tablet 8 mg PO TID PRN Nausea And Vomiting 07/07/25 07/07/25 History lactulose 10 gram/15 mL oral 30 ml PO DAILY PRN Constipation 07/07/25 07/07/25 History solution levothyroxine 150 mcg tablet 150 mcg PO DAILY 07/07/25 07/07/25 History lidocaine 5 % topical patch 1 patch transdermal DAILY 07/07/25 07/07/25 History lidocaine-prilocaine 2.5 %-2.5 % 1 applic topical UD 07/07/25 07/07/25 History topical cream lorazepam 1 mg tablet 1 mg PO QID PRN Anxiety 07/07/25 07/07/25 History methadone 10 mg tablet 30 mg PO TID 07/07/25 07/07/25 History methylnaltrexone 8 mg/0.4 mL 8 mg subcut DAILY PRN Constipation 07/07/25 07/07/25 History subcutaneous syringe (Relistor) naloxone 4 mg/actuation nasal spray 1 spray intranasal Q3M PRN Opioid 07/07/25 07/07/25 History Overdose nystatin 100,000 unit/mL oral 1 ml PO QID 07/07/25 07/07/25 History suspension ondansetron 8 mg disintegrating 8 mg PO TID PRN Nausea And Vomiting 07/07/25 07/07/25 History tablet pantoprazole 40 mg tablet,delayed 40 mg PO BID 07/07/25 07/07/25 History release polyethylene glycol 3350 17 gram 17 g PO DAILY 07/07/25 07/07/25 History oral powder packet pregabalin 100 mg capsule 100 mg PO TID 07/07/25 07/07/25 History promethazine 25 mg tablet 25 mg PO QID PRN Nausea And 07/07/25 07/07/25 History Vomiting propranolol 20 mg tablet 20 mg PO BID 07/07/25 07/07/25 History sennosides 8.6 mg tablet (senna) 17.2 mg PO DAILY 07/07/25 07/07/25 History venlafaxine 75 mg tablet 75 mg PO DAILY 07/07/25 07/07/25 History zolpidem 10 mg tablet 10 mg PO HS PRN Insomnia 07/07/25 07/07/25 History Past Med/Surg History Problem List (Updated 07/07/25 @ 22:33 by Lokesh Slade MD) Hypocalcemia (Acute) Adverse effect of chemotherapy (Acute) Acute dehydration (Acute) Tachycardia (Acute) Diarrhea (Acute) Hypotension (Acute) Near syncope (Acute) Headache (Acute) Hypocalcemia (Acute) Colitis Diarrhea (Acute) GI (gastrointestinal bleed) (Acute) Thyroid cancer Encounter for monitoring cardiotoxic drug therapy Chronic, continuous use of opioids Therapeutic opioid-induced constipation (OIC) Chemotherapy-induced neuropathy Thrush of mouth and esophagus Malignant neoplasm of breast metastatic to bone (Chronic) Advanced care planning/counseling discussion Nausea & vomiting Chronic pain after cancer treatment Cancer related pain Palliative care patient Adenocarcinoma of breast metastatic to liver Metastatic cancer to bone (Acute) Generalized anxiety disorder with panic attacks Bone lesion Breast mass (Acute) Liver lesion Ovarian mass, left Urinary tract infection symptoms Vaginitis Abnormal uterine bleeding Scoliosis (Acute) History of back surgery (Acute) Dental infection (Acute) Medical History Back pain Abdominal pain Generalized body aches Generalized weakness Abnormal liver ultrasound Elevated parathyroid hormone Elevated TSH Alkaline phosphatase elevation Right lumbar radiculitis History of pulmonary embolism 06/2016 tx w/ xarelto, no current anticoagulation. Sounds unprovoked Abnormal barium swallow Sore throat Encounter for pre-operative examination Ectopic SROM (spontaneous rupture of membranes) Anxiety Surgical History Port-A-Cath in place (05/23/25) Insertion of Left Internal Jugular Access Port(Left) - Mushtaq Alvarez DO, FACS History of thyroidectomy Previous back surgery Rods placed and removed Family History Grandmother (Maternal) Breast cancer Other No pertinent family history in first degree relatives Denies family history of Ovarian cancer Deep vein thrombosis Clotting disorder Colorectal cancer Pulmonary embolism Social History Smoking Status: Never smoker Tobacco Type: E-cigarettes / Vaping Second Hand Exposure: No; Do You Dip or Chew Tobacco: No; Hx Alcohol Use: No Hx Substance Use: No Preferred Language: Syriac Communication Ability: Effective Home Vis[employer] Required: No Beliefs That Will Affect Care: None marital status: Single marital status details: does not want FOB listed. 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 Feels Safe at Home: Yes Diet: regular during the past year weight has: remained stable Assistive Devices: None Review of Systems Review of Systems: All systems reviewed & are unremarkable except as noted in HPI & below Physical Exam Physical Exam: General- Not in distress Head- atraumatic Eyes- PERRL. ENT- oropharynx clear Neck- supple, no JVD. Lungs- clear to auscultation and percussion Heart- regular rhythm; tachycardia no murmur, no gallop. Abdomen- normal bowel sounds, soft, diffuse tender no distension Extremities- no pretibial edema, no erythema seen Neuro- alert, oriented PERRL, no facial palsy; no dysarthria; moves extremities Results & Data Results & Data Vital Signs (Past 12 Hours) Vital Signs Temp Pulse Pulse Resp BP BP Pulse Ox 07/07/25 23:34 136 H 07/07/25 22:44 122 H 17 110/74 97 07/07/25 21:00 108 H 15 120/72 98 07/07/25 20:08 98 07/07/25 20:08 119 H 15 114/77 98 07/07/25 19:32 135 H 07/07/25 19:20 36.3 C L 149 H 80/52 L 100 O2 Del Method 07/07/25 23:34 07/07/25 22:44 Room Air 07/07/25 21:00 Room Air 07/07/25 20:08 Room Air 07/07/25 20:08 Room Air 07/07/25 19:32 07/07/25 19:20 Room Air Diagnostic Findings Laboratory Results WBC 3.85 K/ul (4.8-10.8) L 07/07/25 19:57 RBC 3.37 M/uL (4.20-5.40) L 07/07/25 19:57 Hgb 10.6 g/dl (12.0-16.0) L 07/07/25 19:57 Hct 31.2 % (37.0-47.0) L 07/07/25 19:57 MCV 92.6 fL (80.0-100.0) 07/07/25 19:57 MCH 31.5 pg (25.0-34.0) 07/07/25 19:57 MCHC 34.0 g/dL (32.0-36.0) 07/07/25 19:57 RDW Std Deviation 59.1 fL (36.4-46.3) H 07/07/25 19:57 RDW Coeff of Lesa 18.5 % (11.5-14.5) H 07/07/25 19:57 Plt Count 123 K/uL (130-400) L 07/07/25 19:57 MPV 9.0 fL (9.4-12.4) L 07/07/25 19:57 Absolute Nucleated RBC 0.13 K/uL (0.00-0.12) H 07/07/25 19:57 Nucleated RBC % (auto) 3.4 % 07/07/25 19:57 Neutrophils % (Manual) 44 % 07/07/25 19:57 Lymphocytes % (Manual) 25 % 07/07/25 19:57 Monocytes % (Manual) 8 % 07/07/25 19:57 Eosinophils % (Manual) 16 % 07/07/25 19:57 Metamyelocytes % (Man) 2 % 07/07/25 19:57 Myelocytes % (Man) 5 % 07/07/25 19:57 Neutrophils # (Manual) 1.69 K/uL (1.40-6.50) 07/07/25 19:57 Total Absolute Neuts 1.69 K/uL (1.4-6.5) 07/07/25 19:57 Lymphocytes # (Manual) 0.96 K/uL (1.2-3.4) L 07/07/25 19:57 Total Abs Lymphocytes 0.96 K/uL (1.2-3.4) L 07/07/25 19:57 Monocytes # (Manual) 0.31 K/uL (0.11-0.59) 07/07/25 19:57 Eosinophils # (Manual) 0.62 K/uL (0-0.50) H 07/07/25 19:57 Metamyelocytes # (Man) 0.08 K/uL (0-0) H 07/07/25 19:57 Myelocytes # (Manual) 0.19 K/uL (0-0) H 07/07/25 19:57 Toxic Vacuolation 2+ 07/07/25 19:57 Dohle Bodies 1+ 07/07/25 19:57 Polychromasia 1+ 07/07/25 19:57 Sodium 131 mmol/L (136-145) L 07/07/25 19:57 Potassium 3.5 mmol/L (3.5-5.1) 07/07/25 19:57 Chloride 98 mmol/L (98-107) 07/07/25 19:57 Carbon Dioxide 26 mmol/L (21-32) 07/07/25 19:57 Anion Gap 7 (3-11) 07/07/25 19:57 BUN 12 mg/dl (6-23) 07/07/25 19:57 Creatinine 0.67 mg/dl (0.6-1.2) 07/07/25 19:57 Est Cr Clr Drug Dosing 122.3 ml/min 07/07/25 19:57 eGFR 119.02 07/07/25 19:57 BUN/Creatinine Ratio 17.9 (10-20) 07/07/25 19:57 Glucose 100 mg/dl (70-99(Fasting)) H 07/07/25 19:57 Lactate 1.0 mmol/L (0.4-2.0) 07/07/25 19:57 Calcium 7.5 mg/dl (8.6-10.3) L 07/07/25 19:57 Magnesium 1.7 mg/dl (1.7-2.4) 07/07/25 19:57 Total Bilirubin 1.9 mg/dl (0.2-1.0) H 07/07/25 19:57 AST 12 U/L (13-39) L 07/07/25 19:57 ALT 26 U/L (7-52) 07/07/25 19:57 Alkaline Phosphatase 63 U/L (34-104) 07/07/25 19:57 Total Creatine Kinase 45 U/L (26-192) 07/07/25 19:57 Troponin I High Sens 6.0 pg/ml (0-14) 07/07/25 19:57 Total Protein 5.0 gm/dl (6.0-8.3) L 07/07/25 19:57 Albumin 2.5 gm/dl (3.4-5.0) L 07/07/25 19:57 Globulin 2.5 gm/dl (2.5-4.0) 07/07/25 19:57 Albumin/Globulin Ratio 1.0 (0.9-2) 07/07/25 19:57 TSH 5.575 uIu/ml (0.300-4.500) H 07/07/25 19:57 Free T4 0.87 ng/dl (0.61-1.60) 07/07/25 19:57 Impressions Chest X-Ray 07/07/25 19:33 Exam(s): XR CXR 1 VIEW EXAM: XR Chest, 1 View CLINICAL HISTORY: Reason for exam: weakness. TECHNIQUE: Frontal view of the chest. COMPARISON: July 05, 2025. FINDINGS: Lungs: Unremarkable. No acute infiltration, atelectasis or mass. Pleural space: Unremarkable. No pneumothorax or pleural fluid. Heart: Unremarkable. No cardiomegaly. Mediastinum: Unremarkable. Normal mediastinal contour. Bones/joints: No acute findings. Tubes, lines and devices: An infusion port and catheter are stable. IMPRESSION: No acute findings in the chest. Electronically signed by: Reza Cortez MD 07/07/25 22:51 PM ECG Additional Comments: ECG. Sinus tach rate of 132. No significant change Code Status & VTE Plan VTE Prophylaxis Plan VTE Prophylaxis will be ordered: Yes
[2025-07-08] MEDS ORDERED: LIDOCAINE/PRILOCAINE 2.5% EA CRM EXT PRN (00:09)
[2025-07-08] MEDS ORDERED: LORazepam 1 MG TAB PO PRN (00:09)
[2025-07-08] MEDS ORDERED: NITROGLYCERIN SL 0.4 MG/TAB TAB SL PRN (00:09)
[2025-07-08] MEDS ORDERED: ZOLPIDEM TARTRATE 5 MG TAB PO PRN (00:09)
[2025-07-08] MEDS ORDERED: NALOXONE NASAL SPRAY 4 MG ER HOMEPACK PRN (00:09)
[2025-07-08] MEDS ORDERED: NALOXONE HCL 0.4 MG/1 ML VIAL/CARP IV PRN (00:32)
[2025-07-08] MEDS: ACETAMINOPHEN 1,000 MG/100 ML VIAL IV PRN (01:07)
[2025-07-08 01:32] LABS: Appearance Urine Clear (Clear); Bacteria Urine Automated None Seen (None Seen); Cast Urine Automated 0-2 /lpf (0-2); Glucose Urine UA Negative (Negative); RBC Urine Automated 0-2 /hpf (0-2); WBC Urine Automated 0-5 /hpf (0-5)
[2025-07-08] MEDS: LACTATED RINGER'S 1,000 ML IV SCH (01:51)
[2025-07-08] MEDS: PROPRANOLOL HCL 20 MG TAB PO STA (01:51)
[2025-07-08] MEDS: ONDANSETRON INJ 2 MG/ML 2 ML VIAL IV PRN (02:05)
[2025-07-08] MEDS: HYDROmorphone INJ 0.5 MG/0.5 ML SYR IV PRN (02:08)
[2025-07-08 02:13] LABS: Cdiff Toxin B Gene (2yr or >) Negative Cdiff Gene (Neg)
[2025-07-08 02:45] LABS: Adenovirus F 40/41 PCR Not Detected (NotDetected); Campylobacter PCR Not Detected (NotDetected); Enteroaggregative E.coli(EAEC) Not Detected (NotDetected); Shiga-like Toxin E.coli (STEC) Not Detected (NotDetected); Vibrio species PCR Not Detected (NotDetected)
[2025-07-08] MEDS: OPTIRAY 320 100ml IV ONE (02:52)
--- NOTE | 2025-07-08 03:58 | CT Scan Report ---
EXAM: CT abd pelvis IV con only CLINICAL HISTORY: abd pain, mild rectal bleed TECHNIQUE: Contiguous axial images were obtained from the level of the diaphragm to the pubic symphysis with intravenous contrast. Coronal and sagittal reconstructions were likewise performed and were indicated to increase the sensitivity for detecting clinically relevant pathology. If IV contrast material had not been administered, the likelihood of detecting abnormalities relevant to the patient's condition would have been substantially decreased. The CT scan was performed according to ALARA (as low as reasonably achievable). COMPARISON: 20:01:53 COOLING PAN TENDER . FINDINGS: The visualized lung bases are clear. The liver is normal in size and attenuation. No focal liver lesions are seen. There is no intra- or extrahepatic biliary ductal dilatation. Hepatic vasculature is patent. The gallbladder is present. The spleen, pancreas, and adrenal glands are unremarkable. The kidneys are normal in size and attenuation. There is no hydronephrosis or perinephric fat stranding. No renal calculi or renal masses are identified. The ureters are normal in caliber, and no ureteral calculi are seen. The bladder is normal in contour. Pelvic viscera are unremarkable. IUCD is seen in situ. No focal or diffuse bowel wall thickening or evidence of bowel obstruction is identified. There is no imaging evidence of appendicitis. Abdominal and pelvic vasculature is patent. No aggressive appearing osseous lesions are identified. Patchy sclerosis seen in pelvic bones and vertebrae. Moderate diffuse mucosal edema is noted involving ileal loops with mild adjacent fat stranding, suggestive of enteritis changes. Mural stratification with surrounding vascular congestion also seen in distal descending colon, sigmoid colon and rectum- possible colitis. Minimal pelvic ascites is noted. IMPRESSION: Moderate diffuse mucosal edema is noted involving ileal loops with mild adjacent fat stranding, suggestive of enteritis changes. - new finding. Mural stratification with surrounding vascular congestion also seen in distal descending colon, sigmoid colon and rectum- possible colitis. Overall features point to the possibility of inflammatory bowel disease. Advised clinical correlation and further evaluation. Minimal pelvic ascites is noted. - new finding. Patchy sclerosis seen in pelvic bones and vertebrae. Stable. No other new interval abnormality since prior study. Electronically signed by Joe Limon 07-08-2025 03:58 AM
[2025-07-08 06:15] LABS: Alanine Aminotransferase 20.0 U/L (7-52); Albumin Level 2.3 gm/dl (3.4-5.0); Alkaline Phosphatase 51.0 U/L (34-104); Anion Gap 4.0 (3-11); Bilirubin,Total 1.5 mg/dl (0.2-1.0); Blood Urea Nitrogen 10.0 mg/dl (6-23); Calcium 7.7 mg/dl (8.6-10.3); Carbon Dioxide 27.0 mmol/L (21-32); Chloride 102.0 mmol/L (98-107); Creatinine Clr Calc Pharmacy 141.3 ml/min; Glucose 99.0 mg/dl (70-99(Fasting)); Magnesium 2.1 mg/dl (1.7-2.4); Potassium 4.0 mmol/L (3.5-5.1); Sodium 133.0 mmol/L (136-145); Total Protein 4.5 gm/dl (6.0-8.3)
[2025-07-08 06:19] LABS: Hematocrit (blood only) 27.1 % (37.0-47.0); Hemoglobin 9.1 g/dl (12.0-16.0); Mean Corpuscular Hemoglobin 31.4 pg (25.0-34.0); Mean Corpuscular Volume 93.4 fL (80.0-100.0); Platelet Count 115 K/uL (130-400); RDW Standard Deviation 59.7 fL (36.4-46.3); Red Blood Count 2.90 M/uL (4.20-5.40); White Blood Count 4.05 K/ul (4.8-10.8)
[2025-07-08] MEDS: LEVOTHYROXINE SODIUM 150 MCG TABLET PO SCH (06:35)
[2025-07-08 07:00] LABS: ALC (manual) 0.69 K/uL (1.2-3.4); ANC (manual) 2.35 K/uL (1.4-6.5); Dohle Bodies 2+; Polychromasia 1+; Tear Drop Cells 1+; Toxic Vacuolation 1+
--- NOTE | 2025-07-08 08:49 | Hospitalist Progress Note ---
Date of Service July 08, 2025 Assessment & Plan (1) Tachycardia: Plan: 30-year-old female with metastatic breast cancer with metastatic to liver and bone ongoing chemo radiation/steroid treatment, history of papillary thyroid cancer status post surgery/ongoing RAIU therapy, postsurgical hypothyroidism, chronic cancer pain on methadone, scoliosis, urolithiasis, anxiety/mood disorder, history of PE status post anticoagulation presents with diarrhea and abdominal pain going on since last Tuesday. Patient was in the ER on 07/05/2025 when she had a reaction while getting chemo and did okay and got discharged. That day chemo was not given because of the reaction. Because of ongoing diarrhea several times associated with abdominal pain and small amount of blood in the rectum she came to the ER today. Says she is not eating or drinking , appetite is not great. Was nauseous. In the ER is she is tachycardic. Denies any fevers. No chest pain or shortness of breath. No headache no runny nose or sore throat. No cough. Patient was recently admitted in the hospital on 06/30/2024 and was discharged on 07/02/2025. At the time admitted for bloody diarrhea and CAT scan showed colitis and she was status post colonoscopy and biopsy of the proctitis and sigmoid colitis. Pathology came back as colitis but not in favor of ischemic colitis. Tachycardia - resolved Acute dehydration Ongoing diarrhea and nausea Poor oral intake Lactic acid normal Continue IV fluids Continue home propranolol. was given one dose on admission as she did not take at home on day of admission Will monitor Abdominal pain Diarrhea Mild rectal bleed Had colonoscopy 06/21/2025 which showed internal hemorrhoids and localized inflammation in the rectum and sigmoid colon and biopsy showed colitis. Hemoglobin stable at 10.6 Monitor H&H stool studies negative N.p.o., IV fluids, pain control GI consulted - started Budesonide Fever - spiked Temp 38.3C in ER overnight - Blood cultures ordered - UA negat. - CXR - negat., also denies any cough - stool studies - negative as above - cont. to closely monitor Hyponatremia Sodium 131 on admission -> now 133 - likely secondary to poor oral intake and being npo - cont. to monitor Pancytopenia mostly from chemo and cancer will follow labs Cancer pain Continue home pain medications Metastatic breast cancer to liver and bone Following with heme-onc and radiation oncology On chemo History of PE Completed anticoagulation in the past as per records Follow-up with heme-onc History of papillary thyroid cancer S/p surgery/ongoing RAIU therapy Postsurgical hypothyroidism On Synthroid Anxiety/mood disorder On venlafaxine Ativan as needed DVT prophylaxis - SCDs for now Disposition - Telemetry Full code. Admission and Anticipated Discharge Date Admission Date: July 07, 2025 Subjective Pt seen in follow up Hx of metastatic breast cancer, follows w/ Dr. Salazar ([facility]), also follows w/ palliative (Dr. Issa) Presents w/ diarrhea, tachycardia, rectal bleed - GI consulted - started budesonide Also recently admitted and had colonoscopy - pathology c/w colitis Stool studies negative Currently sitting up in be in NAD, awake, alert, answers appropriately, + abdominal pain. Spiked fever 38.3 C overnight. Denies having fevers at home. No cough, no chest pain, no shortness of breath. Review of Systems Review of Systems: All systems reviewed & are unremarkable except as noted in Subjective Physical Exam Physical Exam: General- Not in distress Head- atraumatic Eyes- PERRL. Neck- supple, no JVD. Lungs- clear to auscultation and percussion Heart- regular rhythm; tachycardia no murmur Abdomen- normal bowel sounds, soft, diffuse tender no distension Extremities- no pretibial edema, no erythema seen Neuro- alert, oriented PERRL, no facial palsy; no dysarthria; moves extremities Results & Data Results & Data Vital Signs (Past 12 Hours) Vital Signs Temp Pulse Pulse Resp BP Pulse Ox Pulse Ox 07/08/25 06:39 84 18 125/57 L 99 07/08/25 06:00 85 15 100/58 L 99 07/08/25 04:00 36.7 C 88 20 107/64 96 07/08/25 01:53 37.4 C 114 H 16 108/67 98 07/08/25 01:31 37.9 C H 07/08/25 01:22 98 07/08/25 00:29 38.3 C H 124 H 15 108/70 96 07/07/25 23:34 136 H 07/07/25 22:44 122 H 17 110/74 97 07/07/25 21:00 108 H 15 120/72 98 O2 Del Method 07/08/25 06:39 Room Air 07/08/25 06:00 Room Air 07/08/25 04:00 Room Air 07/08/25 01:53 Room Air 07/08/25 01:31 07/08/25 01:22 07/08/25 00:29 Room Air 07/07/25 23:34 07/07/25 22:44 Room Air 07/07/25 21:00 Room Air Laboratory Results 07/08/25 07/08/25 07/08/25 Range/Units 05:32 02:06 01:17 WBC 4.05 L (4.8-10.8) K/ul RBC 2.90 L (4.20-5.40) M/uL Hgb 9.1 L (12.0-16.0) g/dl Hct 27.1 L (37.0-47.0) % MCV 93.4 (80.0-100.0) fL MCH 31.4 (25.0-34.0) pg MCHC 33.6 (32.0-36.0) g/dL RDW Std Deviation 59.7 H (36.4-46.3) fL RDW Coeff of Lesa 18.4 H (11.5-14.5) % Plt Count 115 L (130-400) K/uL MPV 8.9 L (9.4-12.4) fL Absolute Nucleated RBC 0.07 (0.00-0.12) K/uL Nucleated RBC % (auto) 1.7 % Neutrophils % (Manual) 58 % Lymphocytes % (Manual) 17 % Monocytes % (Manual) 8 % Eosinophils % (Manual) 11 % Metamyelocytes % (Man) 4 % Myelocytes % (Man) 2 % Neutrophils # (Manual) 2.35 (1.40-6.50) K/uL Total Absolute Neuts 2.35 (1.4-6.5) K/uL Lymphocytes # (Manual) 0.69 L (1.2-3.4) K/uL Total Abs Lymphocytes 0.69 L (1.2-3.4) K/uL Monocytes # (Manual) 0.32 (0.11-0.59) K/uL Eosinophils # (Manual) 0.45 (0-0.50) K/uL Metamyelocytes # (Man) 0.16 H (0-0) K/uL Myelocytes # (Manual) 0.08 H (0-0) K/uL Toxic Vacuolation 1+ Dohle Bodies 2+ Polychromasia 1+ Tear Drop Cells 1+ Sodium 133 L (136-145) mmol/L Potassium 4.0 (3.5-5.1) mmol/L Chloride 102 (98-107) mmol/L Carbon Dioxide 27 (21-32) mmol/L Anion Gap 4 (3-11) BUN 10 (6-23) mg/dl Creatinine 0.58 L (0.6-1.2) mg/dl Est Cr Clr Drug Dosing 141.3 ml/min eGFR 123.23 BUN/Creatinine Ratio 17.2 (10-20) Glucose 99 (70-99(Fasting)) mg/dl POC Glucose 112 H (70-99) mg/dl Lactate (0.4-2.0) mmol/L Calcium 7.7 L (8.6-10.3) mg/dl Magnesium 2.1 (1.7-2.4) mg/dl Total Bilirubin 1.5 H (0.2-1.0) mg/dl Direct Bilirubin 0.6 H (0-0.2) mg/dl AST 10 L (13-39) U/L ALT 20 (7-52) U/L Alkaline Phosphatase 51 (34-104) U/L Total Creatine Kinase (26-192) U/L Troponin I High Sens (0-14) pg/ml Total Protein 4.5 L (6.0-8.3) gm/dl Albumin 2.3 L (3.4-5.0) gm/dl Globulin (2.5-4.0) gm/dl Albumin/Globulin Ratio (0.9-2) TSH (0.300-4.500) uIu/ml Free T4 (0.61-1.60) ng/dl Urine Color Turner Urine Appearance Clear (Clear) Urine pH 5.5 (4.5-7.5) Ur Specific [place] 1.020 (1.000-1.030) Urine Protein 1+ H (Negative) Urine Glucose (UA) Negative (Negative) Urine Ketones 1+ H (Negative) Urine Blood Negative (Negative) Urine Nitrite Negative (Negative) Urine Bilirubin 1+ H (Negative) Urine Urobilinogen Negative (Negative) Ur Leukocyte Esterase Trace H (Negative) Urine WBC (Auto) 0-5 (0-5) /hpf Urine RBC (Auto) 0-2 (0-2) /hpf U Hyaline Cast (Auto) 0-2 (0-2) /lpf U Epithel Cells (Auto) 3-5 H (0-2) /hpf Urine Bacteria (Auto) None Seen (None Seen) Urine Comment Stl C. cayetanensis PCR Not Detected (NotDetected) Stool Rotavirus A PCR Not Detected (NotDetected) Stl Adenov F 40/41 PCR Not Detected (NotDetected) Stool Astrovirus (PCR) Not Detected (NotDetected) Stool Campylobacter PCR Not Detected (NotDetected) Stl C. diff Tox B Gene Negative Cdiff Gene (Neg) Stl C. diff 027-NAP1-BI NEGATIVE Stool Cryptosporidium PCR Not Detected (NotDetected) Stl E.coli Shiga Tox PCR Not Detected (NotDetected) Stl Enterotoxigenic E PCR Not Detected (NotDetected) Stool EPEC (PCR) Not Detected (NotDetected) Stool EAEC (PCR) Not Detected (NotDetected) Stl E. histolytica PCR Not Detected (NotDetected) Stool Giardia Lamblia PCR Not Detected (NotDetected) Stool Salmonella PCR Not Detected (NotDetected) Stool Sapovirus (PCR) Not Detected (NotDetected) Stl P. shigelloides PCR Not Detected (NotDetected) Stl Shigella/EIEC PCR Not Detected (NotDetected) St Y.enterocolitica PCR Not Detected (NotDetected) Stool Vibrio (PCR) Not Detected (NotDetected) Stl Vibrio cholerae PCR Not Detected (NotDetected) Stl Norovirus GI/GII PCR Not Detected (NotDetected) 07/07/25 Range/Units 19:57 WBC 3.85 L (4.8-10.8) K/ul RBC 3.37 L (4.20-5.40) M/uL Hgb 10.6 L (12.0-16.0) g/dl Hct 31.2 L (37.0-47.0) % MCV 92.6 (80.0-100.0) fL MCH 31.5 (25.0-34.0) pg MCHC 34.0 (32.0-36.0) g/dL RDW Std Deviation 59.1 H (36.4-46.3) fL RDW Coeff of Lesa 18.5 H (11.5-14.5) % Plt Count 123 L (130-400) K/uL MPV 9.0 L (9.4-12.4) fL Absolute Nucleated RBC 0.13 H (0.00-0.12) K/uL Nucleated RBC % (auto) 3.4 % Neutrophils % (Manual) 44 % Lymphocytes % (Manual) 25 % Monocytes % (Manual) 8 % Eosinophils % (Manual) 16 % Metamyelocytes % (Man) 2 % Myelocytes % (Man) 5 % Neutrophils # (Manual) 1.69 (1.40-6.50) K/uL Total Absolute Neuts 1.69 (1.4-6.5) K/uL Lymphocytes # (Manual) 0.96 L (1.2-3.4) K/uL Total Abs Lymphocytes 0.96 L (1.2-3.4) K/uL Monocytes # (Manual) 0.31 (0.11-0.59) K/uL Eosinophils # (Manual) 0.62 H (0-0.50) K/uL Metamyelocytes # (Man) 0.08 H (0-0) K/uL Myelocytes # (Manual) 0.19 H (0-0) K/uL Toxic Vacuolation 2+ Dohle Bodies 1+ Polychromasia 1+ Tear Drop Cells Sodium 131 L (136-145) mmol/L Potassium 3.5 (3.5-5.1) mmol/L Chloride 98 (98-107) mmol/L Carbon Dioxide 26 (21-32) mmol/L Anion Gap 7 (3-11) BUN 12 (6-23) mg/dl Creatinine 0.67 (0.6-1.2) mg/dl Est Cr Clr Drug Dosing 122.3 ml/min eGFR 119.02 BUN/Creatinine Ratio 17.9 (10-20) Glucose 100 H (70-99(Fasting)) mg/dl POC Glucose (70-99) mg/dl Lactate 1.0 (0.4-2.0) mmol/L Calcium 7.5 L (8.6-10.3) mg/dl Magnesium 1.7 (1.7-2.4) mg/dl Total Bilirubin 1.9 H (0.2-1.0) mg/dl Direct Bilirubin (0-0.2) mg/dl AST 12 L (13-39) U/L ALT 26 (7-52) U/L Alkaline Phosphatase 63 (34-104) U/L Total Creatine Kinase 45 (26-192) U/L Troponin I High Sens 6.0 (0-14) pg/ml Total Protein 5.0 L (6.0-8.3) gm/dl Albumin 2.5 L (3.4-5.0) gm/dl Globulin 2.5 (2.5-4.0) gm/dl Albumin/Globulin Ratio 1.0 (0.9-2) TSH 5.575 H (0.300-4.500) uIu/ml Free T4 0.87 (0.61-1.60) ng/dl Urine Color Urine Appearance (Clear) Urine pH (4.5-7.5) Ur Specific [place] (1.000-1.030) Urine Protein (Negative) Urine Glucose (UA) (Negative) Urine Ketones (Negative) Urine Blood (Negative) Urine Nitrite (Negative) Urine Bilirubin (Negative) Urine Urobilinogen (Negative) Ur Leukocyte Esterase (Negative) Urine WBC (Auto) (0-5) /hpf Urine RBC (Auto) (0-2) /hpf U Hyaline Cast (Auto) (0-2) /lpf U Epithel Cells (Auto) (0-2) /hpf Urine Bacteria (Auto) (None Seen) Urine Comment Stl C. cayetanensis PCR (NotDetected) Stool Rotavirus A PCR (NotDetected) Stl Adenov F 40/41 PCR (NotDetected) Stool Astrovirus (PCR) (NotDetected) Stool Campylobacter PCR (NotDetected) Stl C. diff Tox B Gene (Neg) Stl C. diff 027-NAP1-BI Stool Cryptosporidium PCR (NotDetected) Stl E.coli Shiga Tox PCR (NotDetected) Stl Enterotoxigenic E PCR (NotDetected) Stool EPEC (PCR) (NotDetected) Stool EAEC (PCR) (NotDetected) Stl E. histolytica PCR (NotDetected) Stool Giardia Lamblia PCR (NotDetected) Stool Salmonella PCR (NotDetected) Stool Sapovirus (PCR) (NotDetected) Stl P. shigelloides PCR (NotDetected) Stl Shigella/EIEC PCR (NotDetected) St Y.enterocolitica PCR (NotDetected) Stool Vibrio (PCR) (NotDetected) Stl Vibrio cholerae PCR (NotDetected) Stl Norovirus GI/GII PCR (NotDetected) Medications Administered Current Inpatient Medications Calcium/Vitamin D (Calcium 600mg + Vit D 400 Iu Tab) 1 tab PO BID [facility] Stop: 08/07/25 08:59 Hydromorphone HCl (Hydromorphone Inj 0.5 Mg/0.5 Ml Syr) 0.25 mg IV Q4H PRN PRN Reason: Moderate Pain (Scale 4, 5, 6) Stop: 07/22/25 00:08 Last Admin: 07/08/25 02:08 Dose: 0.25 mg Hydromorphone HCl (Hydromorphone Inj 0.5 Mg/0.5 Ml Syr) 0.5 mg IV Q4H PRN PRN Reason: Severe Pain (Scale 7, 8, 9,10) Stop: 07/22/25 00:08 Lactated Ringer's (Lr) 1,000 mls @ 125 mls/hr IV .Q8H JOSEFA Stop: 07/11/25 00:08 Last Admin: 07/08/25 01:51 Dose: 125 mls/hr Acetaminophen (Ofirmev) 1,000 mg in 100 mls @ 400 mls/hr IV Q8H PRN PRN Reason: Pain or Fever Stop: 07/11/25 00:08 Last Infusion: 07/08/25 01:27 Dose: Infused Lactulose (Lactulose Syrup 20 Gm/30 Ml Udc) 20 gm PO DAILY PRN PRN Reason: Constipation Stop: 08/07/25 00:24 Levothyroxine Sodium (Levothyroxine Sodium 150 Mcg Tablet) 150 mcg PO DAILYBB JOSEFA Stop: 08/07/25 06:29 Last Admin: 07/08/25 06:35 Dose: 150 mcg Lidocaine (Lidocaine 5% 1 Patch) 1 patch TD DAILY JOSEFA Stop: 08/07/25 08:59 Lidocaine/Prilocaine (Lidocaine/Prilocaine 2.5% Ea Crm) 1 each EXT DAILY PRN PRN Reason: PORT ACCESS Stop: 08/07/25 00:08 Lorazepam (Lorazepam 1 Mg Tab) 1 mg PO QID PRN PRN Reason: Anxiety Stop: 08/07/25 00:08 Methadone HCl (Methadone Hcl 10 Mg Tab) 30 mg PO TID [facility] Stop: 07/22/25 08:59 Miscellaneous (Remove Lidoderm Patch) 1 each N/A DAILY@2100 [facility] Stop: 08/07/25 20:59 Naloxone HCl (Naloxone Hcl 0.4 Mg/1 Ml Vial/Carp) 0.1 mg IV Q5M PRN; Protocol PRN Reason: Oversedation/Resp Depression Stop: 07/22/25 00:31 Nitroglycerin (Nitroglycerin Sl 0.4 Mg/Tab Tab) 0.4 mg SL Q5M PRN PRN Reason: Chest Pain Stop: 08/07/25 00:08 Nystatin (Nystatin Susp 500,000 U/5 Ml Udc) 1 ml PO QID [facility] Stop: 07/18/25 08:59 Ondansetron HCl (Ondansetron Inj 2 Mg/Ml 2 Ml Vial) 4 mg IV Q6H PRN PRN Reason: Nausea Stop: 08/07/25 00:08 Last Admin: 07/08/25 02:05 Dose: 4 mg Pantoprazole Sodium (Pantoprazole 40 Mg Tab) 40 mg PO BID [facility] Stop: 08/07/25 08:59 Pregabalin (Pregabalin 100 Mg Cap) 100 mg PO TID [facility] Stop: 08/07/25 08:59 Propranolol HCl (Propranolol Hcl 20 Mg Tab) 20 mg PO BID [facility] Stop: 08/07/25 08:59 Venlafaxine HCl (Venlafaxine Hcl 37.5 Mg Tab) 75 mg PO DAILY JOSEFA Stop: 08/07/25 08:59 Zolpidem Tartrate (Zolpidem Tartrate 5 Mg Tab) 10 mg PO HS PRN PRN Reason: Insomnia Stop: 08/07/25 00:08
--- NOTE | 2025-07-08 08:56 | Electrocardiogram Report ---
Test Reason : Blood Pressure : */* mmHG Vent. Rate : 132 BPM Atrial Rate : 132 BPM P-R Int : 114 ms QRS Dur : 70 ms QT Int : 292 ms P-R-T Axes : 38 18 16 degrees QTcB Int : 432 ms Sinus tachycardia Otherwise normal ECG When compared with ECG of 05-Jul-2025 15:58, No significant change was found Confirmed by Joselito Boyd [id number] on 07/08/2025 8:55:52 AM Referred By: REFERRED SELF Confirmed By: Joselito Boyd
[2025-07-08] MEDS: METHADONE HCL 10 MG TAB PO SCH (10:03)
[2025-07-08] MEDS: LIDOCAINE 5% 1 PATCH TD SCH (10:04)
[2025-07-08] MEDS: NYSTATIN SUSP 500,000 U/5 ML UDC PO SCH (10:04)
--- NOTE | 2025-07-08 10:04 | Gastrointestinal Consultation ---
Date of Consultation July 08, 2025 Assessment & Plan (1) Colitis: -Add Budesonide 9 mg po daily -Ideally would add Canasa ND daily, but this is not on formulary so will use Rowasa nightly. -Diet as tolerated -Continue to monitor -Supportive care per primary team and her palliative support team as well Supervising Physician Co-Signing Physician Notes Patient with metastatic cancer. Recent admission for GI symptoms. Found to have some proctitis and colitis. Back with similar symptoms. Poor appetite. Try symptomatic treatment with oral budesonide and Canasa suppository. Canasa suppository is not available as an inpatient therefore we will try some of her ways to enemas. Reviewed with patient agreeable. Encouraged increased p.o. intake as her appetite is poor. History of Present Illness Reason for Consultation: Abdominal pain, mild rectal bleeding Attending Physician: Da Aponte MD History of Present Illness Patient is a 30-year-old female with metastatic breast cancer with metastatic to liver and bone who presents with diarrhea and abdominal pain ongoing since last Tuesday. She is not eating or drinking normally. She is nauseous. She notes 6- 10 episodes of diarrhea with some bright red blood per rectum daily. Patient was recently admitted in the hospital on 06/30/2024 and was discharged on 07/02/2025. At the time admitted for bloody diarrhea and CT scan showed colitis. A colonoscopy was performed and showed an acute proctitis/colitis on biopsies and concern was for a stercoral proctitis. No pathology findings to support ischemic colitis. A repeat Stool PCR is negative including C diff today. She is fatigued and minimally participates with my evaluation today. H/H 9.1/27.1. Allergies Allergy/AdvReac Type Severity Reaction Status Date / Time Cephalosporins Allergy Severe FACIAL Verified 06/13/25 08:31 SWELLING/HIVES vancomycin AdvReac Intermediate RED MAN Verified 06/13/25 08:31 SYNDROME Home Medications Medication Instructions Recorded Confirmed Type calcium 500 mg (as 1 tab PO BID 07/07/25 07/07/25 History carbonate)-vitamin D3 5 mcg (200 unit) tablet (Oyster Shell Calcium-Vitamin D3) hydrocortisone 1 % topical cream 1 applic ND BID 07/07/25 07/07/25 History hydromorphone 8 mg tablet 8 mg PO TID PRN Nausea And Vomiting 07/07/25 07/07/25 History lactulose 10 gram/15 mL oral 30 ml PO DAILY PRN Constipation 07/07/25 07/07/25 History solution levothyroxine 150 mcg tablet 150 mcg PO DAILY 07/07/25 07/07/25 History lidocaine 5 % topical patch 1 patch transdermal DAILY 07/07/25 07/07/25 History lidocaine-prilocaine 2.5 %-2.5 % 1 applic topical UD 07/07/25 07/07/25 History topical cream lorazepam 1 mg tablet 1 mg PO QID PRN Anxiety 07/07/25 07/07/25 History methadone 10 mg tablet 30 mg PO TID 07/07/25 07/07/25 History methylnaltrexone 8 mg/0.4 mL 8 mg subcut DAILY PRN Constipation 07/07/25 07/07/25 History subcutaneous syringe (Relistor) naloxone 4 mg/actuation nasal spray 1 spray intranasal Q3M PRN Opioid 07/07/25 07/07/25 History Overdose nystatin 100,000 unit/mL oral 1 ml PO QID 07/07/25 07/07/25 History suspension ondansetron 8 mg disintegrating 8 mg PO TID PRN Nausea And Vomiting 07/07/25 07/07/25 History tablet pantoprazole 40 mg tablet,delayed 40 mg PO BID 07/07/25 07/07/25 History release polyethylene glycol 3350 17 gram 17 g PO DAILY 07/07/25 07/07/25 History oral powder packet pregabalin 100 mg capsule 100 mg PO TID 07/07/25 07/07/25 History promethazine 25 mg tablet 25 mg PO QID PRN Nausea And 07/07/25 07/07/25 History Vomiting propranolol 20 mg tablet 20 mg PO BID 07/07/25 07/07/25 History sennosides 8.6 mg tablet (senna) 17.2 mg PO DAILY 07/07/25 07/07/25 History venlafaxine 75 mg tablet 75 mg PO DAILY 07/07/25 07/07/25 History zolpidem 10 mg tablet 10 mg PO HS PRN Insomnia 07/07/25 07/07/25 History Patient History Medical History Back pain Abdominal pain Generalized body aches Generalized weakness Abnormal liver ultrasound Elevated parathyroid hormone Elevated TSH Alkaline phosphatase elevation Right lumbar radiculitis History of pulmonary embolism 06/2016 tx w/ xarelto, no current anticoagulation. Sounds unprovoked Abnormal barium swallow Sore throat Encounter for pre-operative examination Ectopic SROM (spontaneous rupture of membranes) Anxiety Surgical History Port-A-Cath in place (05/23/25) Insertion of Left Internal Jugular Access Port(Left) - Mushtaq Alvarez DO, DIANA History of thyroidectomy Previous back surgery Rods placed and removed Family History Grandmother (Maternal) Breast cancer Other No pertinent family history in first degree relatives Denies family history of Ovarian cancer Deep vein thrombosis Clotting disorder Colorectal cancer Pulmonary embolism Social History Smoking Status: Never smoker Tobacco Type: E-cigarettes / Vaping Second Hand Exposure: No; Do You Dip or Chew Tobacco: No; Hx Alcohol Use: No Hx Substance Use: No Preferred Language: Divehi Communication Ability: Effective Beef Grader Required: No Beliefs That Will Affect Care: None marital status: Single marital status details: does not want FOB listed. 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 Feels Safe at Home: Yes Diet: regular during the past year weight has: remained stable Assistive Devices: None Review of Systems Constitutional: + fatigue and + weakness Respiratory: no cough and no dyspnea Cardiovascular: no chest pain Gastrointestinal: + abdominal pain, + nausea, + diarrhea/l oose stools and + blood in stools Physical Exam Gastrointestinal (Abdomen): normal bowel sounds, soft, nontender, no hepatosplenomegaly Results & Data Vital Signs (Past 12 Hours) Vital Signs Temp Pulse Pulse Resp BP Pulse Ox Pulse Ox 07/08/25 06:39 84 18 125/57 L 99 07/08/25 06:00 85 15 100/58 L 99 07/08/25 04:00 36.7 C 88 20 107/64 96 07/08/25 01:53 37.4 C 114 H 16 108/67 98 07/08/25 01:31 37.9 C H 07/08/25 01:22 98 07/08/25 00:29 38.3 C H 124 H 15 108/70 96 07/07/25 23:34 136 H 07/07/25 22:44 122 H 17 110/74 97 O2 Del Method 07/08/25 06:39 Room Air 07/08/25 06:00 Room Air 07/08/25 04:00 Room Air 07/08/25 01:53 Room Air 07/08/25 01:31 07/08/25 01:22 07/08/25 00:29 Room Air 07/07/25 23:34 07/07/25 22:44 Room Air PG Care Time/CCT Total # of Minutes Spent Total Time Spent with Patient: Total time spent is greater than 50% in coordination of care (as documented) at patient's floor/unit and/or counseling patient: Coding Level of Care Code 54102 IN/OBS CONSULT LVL 4,60M Diagnoses Colitis K52.9
[2025-07-08] MEDS: CALCIUM 600MG + VIT D 400 IU TAB PO SCH (10:05)
[2025-07-08] MEDS: PREGABALIN 100 MG CAP PO SCH (10:05)
[2025-07-08] MEDS: PROPRANOLOL HCL 20 MG TAB PO SCH (10:05)
[2025-07-08] MEDS: VENLAFAXINE HCL 37.5 MG TAB PO SCH (10:06)
[2025-07-08] MEDS: BUDESONIDE EC 3 MG CAP PO SCH (11:33)
[2025-07-08] MEDS: MESALAMINE 4 GM/60 ML ENEMA PR SCH (18:03)
[2025-07-08] MEDS: REMOVE LIDODERM PATCH SCH (20:51)
[2025-07-09 06:47] LABS: Hematocrit (blood only) 22.6 % (37.0-47.0); Hemoglobin 7.6 g/dl (12.0-16.0); Mean Corpuscular Hemoglobin 31.3 pg (25.0-34.0); Mean Corpuscular Volume 93.0 fL (80.0-100.0); Platelet Count 104 K/uL (130-400); RDW Standard Deviation 59.1 fL (36.4-46.3); Red Blood Count 2.43 M/uL (4.20-5.40)
[2025-07-09 07:07] LABS: White Blood Count 3.25 K/ul (4.8-10.8)
[2025-07-09 07:13] LABS: Anion Gap 4.0 (3-11); Blood Urea Nitrogen 7.0 mg/dl (6-23); Calcium 7.6 mg/dl (8.6-10.3); Carbon Dioxide 28.0 mmol/L (21-32); Chloride 100.0 mmol/L (98-107); Creatinine Clr Calc Pharmacy 167.2 ml/min; Glucose 88.0 mg/dl (70-99(Fasting)); Magnesium 1.8 mg/dl (1.7-2.4); Potassium 3.7 mmol/L (3.5-5.1); Sodium 132.0 mmol/L (136-145)
[2025-07-09] MEDS ORDERED: SODIUM PHOSPHATE 3 MMOL/1 ML INFUSION IV STA (07:58)
[2025-07-09 08:20] LABS: ALC (manual) 0.29 K/uL (1.2-3.4); ANC (manual) 1.82 K/uL (1.4-6.5)
[2025-07-09 08:22] LABS: Dohle Bodies 1+; Tear Drop Cells 1+; Toxic Granulation 1+
[2025-07-09] MEDS: SODIUM PHOSPHATE IV ONE (09:01)
[2025-07-09] MEDS: POTASSIUM CHLORIDE CRTAB 20 MEQ TABCR PO STA (09:01)
[2025-07-09] MEDS: DEXTROSE 5% IV ONE (09:01)
--- NOTE | 2025-07-09 12:36 | Gastroenterology Progress Note ---
Date of Service July 09, 2025 Assessment & Plan (1) Colitis: Plan: Rectal bleeding improving. Still with loose stool and abdominal cramping. -Continue Budesonide 9 mg po daily -Continue with Rowasa daily -Will add Bentyl 10 mg q 6 hr due to abdominal cramping -Will discuss further with Dr. Caba regarding any further possible interventions Admission and Anticipated Discharge Date Admission Date: July 07, 2025 Supervising Physician Co-Signing Physician Notes Day 1 of oral budesonide and Alma Delia enemas. Maybe less bleeding. Symptoms otherwise the same. Would not expect improvement in this short timeframe. Continue for 3 to 4 days. Subjective Patient is a 30 yo female with colitis/proctitis. Budesonide & Rowasa were added yesterday. She notes improvement of rectal bleeding. Diarrhea persists. She has abdominal cramping. Review of Systems Constitutional: no fever and no chills Respiratory: no cough and no dyspnea Gastrointestinal: + abdominal pain and + diarrhea/loose st ools Physical Exam Constitutional: well developed Respiratory: normal respiratory effort Cardiovascular: Rate/Rhythm: regular rate Gastrointestinal (Abdomen): Inspection/Auscultation: abdomen normal to inspection Percussion/Palpation: abdomen soft; abdomen nontender Psychiatric: Orientation: alert and oriented x 3 Results & Data Results & Data Vital Signs (Past 12 Hours) Vital Signs Temp Pulse Pulse Pulse Resp BP Pulse Ox 07/09/25 11:31 36.6 C 84 18 109/68 99 07/09/25 08:00 91 H 07/09/25 08:00 07/09/25 07:38 36.5 C 93 H 18 106/77 99 07/09/25 02:35 37.2 C 103 H 18 102/67 98 O2 Del Method 07/09/25 11:31 Room Air 07/09/25 08:00 07/09/25 08:00 Room Air 07/09/25 07:38 Room Air 07/09/25 02:35 Room Air PG Care Time/CCT Total # of Minutes Spent Total Time Spent with Patient: Total time spent is greater than 50% in coordination of care (as documented) at patient's floor/unit and/or counseling patient: Coding Level of Care Code 53482 SUB INP/OBS CARE 2/35MIN Diagnoses Colitis K52.9
[2025-07-09] MEDS: DICYCLOMINE HCL 10 MG CAP PO SCH (13:20)
--- NOTE | 2025-07-09 13:52 | Hospitalist Progress Note ---
Date of Service July 09, 2025 Assessment & Plan (1) Tachycardia: Plan: 30-year-old female with metastatic breast cancer with metastatic to liver and bone ongoing chemo radiation/steroid treatment, history of papillary thyroid cancer status post surgery/ongoing RAIU therapy, postsurgical hypothyroidism, chronic cancer pain on methadone, scoliosis, urolithiasis, anxiety/mood disorder, history of PE status post anticoagulation presents with diarrhea and abdominal pain going on since last Tuesday. Patient was in the ER on 07/05/2025 when she had a reaction while getting chemo and did okay and got discharged. That day chemo was not given because of the reaction. Because of ongoing diarrhea several times associated with abdominal pain and small amount of blood in the rectum she came to the ER today. Says she is not eating or drinking , appetite is not great. Was nauseous. In the ER is she is tachycardic. Denies any fevers. No chest pain or shortness of breath. No headache no runny nose or sore throat. No cough. Patient was recently admitted in the hospital on 06/30/2024 and was discharged on 07/02/2025. At the time admitted for bloody diarrhea and CAT scan showed colitis and she was status post colonoscopy and biopsy of the proctitis and sigmoid colitis. Pathology came back as colitis but not in favor of ischemic colitis. Tachycardia - resolved Acute dehydration Ongoing diarrhea and nausea Poor oral intake Lactic acid normal Continue IV fluids Continue home propranolol. was given one dose on admission as she did not take at home on day of admission Will monitor Abdominal pain Diarrhea Mild rectal bleed Had colonoscopy 06/21/2025 which showed internal hemorrhoids and localized inflammation in the rectum and sigmoid colon and biopsy showed colitis. Hemoglobin stable at 10.6 Monitor H&H stool studies negative N.p.o., IV fluids, pain control GI consulted - started Budesonide, plan to also try bentyl for abd. cramping Advanced diet Fever - spiked Temp 38.3C in ER overnight - Blood cultures - negat. so far - UA negat. - CXR - negat., also denies any cough - stool studies - negative as above - cont. to closely monitor Hyponatremia Sodium 131 on admission -> 133/132 - likely secondary to poor oral intake - cont. to monitor Pancytopenia mostly from chemo and cancer will follow labs Cancer pain Continue home pain medications Metastatic breast cancer to liver and bone Following with heme-onc and radiation oncology On chemo History of PE Completed anticoagulation in the past as per records Follow-up with heme-onc History of papillary thyroid cancer S/p surgery/ongoing RAIU therapy Postsurgical hypothyroidism On Synthroid Anxiety/mood disorder On venlafaxine Ativan as needed DVT prophylaxis - SCDs for now Disposition - Telemetry Full code. Admission and Anticipated Discharge Date Admission Date: July 07, 2025 Subjective Pt seen in follow up Hx of metastatic breast cancer, follows w/ Dr. Salazar ([facility] oncology), also follows w/ palliative (Dr. Issa) Presents w/ diarrhea, tachycardia, rectal bleed - GI consulted - started budesonide Also recently admitted and had colonoscopy - pathology c/w colitis Stool studies negative Currently sitting up in be in NAD, awake, alert, answers appropriately, says she now has appetite but with any small amount of food she eats, she has a BM. + abdominal cramping . Spiked fever 38.3 C overnight of admission, now afebrile. Denies having fevers at home. No cough, no chest pain, no shortness of breath. Review of Systems Review of Systems: All systems reviewed & are unremarkable except as noted in Subjective Physical Exam Physical Exam: General- Not in distress Head- atraumatic Eyes- PERRL. Neck- supple, no JVD. Lungs- clear to auscultation Heart- regular rhythm; no murmur Abdomen- normal bowel sounds, soft, diffuse tender no distension Extremities- no pretibial edema, no erythema seen Neuro- alert, oriented PERRL, no facial palsy; no dysarthria; moves extremities Results & Data Results & Data Vital Signs (Past 12 Hours) Vital Signs Temp Pulse Pulse Pulse Resp BP Pulse Ox 07/09/25 11:31 36.6 C 84 18 109/68 99 07/09/25 08:00 91 H 07/09/25 08:00 07/09/25 07:38 36.5 C 93 H 18 106/77 99 07/09/25 02:35 37.2 C 103 H 18 102/67 98 O2 Del Method 07/09/25 11:31 Room Air 07/09/25 08:00 07/09/25 08:00 Room Air 07/09/25 07:38 Room Air 07/09/25 02:35 Room Air Laboratory Results 07/09/25 Range/Units 06:02 WBC 3.25 L (4.8-10.8) K/ul RBC 2.43 L (4.20-5.40) M/uL Hgb 7.6 L (12.0-16.0) g/dl Hct 22.6 L (37.0-47.0) % MCV 93.0 (80.0-100.0) fL MCH 31.3 (25.0-34.0) pg MCHC 33.6 (32.0-36.0) g/dL RDW Std Deviation 59.1 H (36.4-46.3) fL RDW Coeff of Lesa 18.1 H (11.5-14.5) % Plt Count 104 L (130-400) K/uL MPV 9.2 L (9.4-12.4) fL Absolute Nucleated RBC 0.03 (0.00-0.12) K/uL Nucleated RBC % (auto) 0.9 % Neutrophils % (Manual) 56 % Lymphocytes % (Manual) 9 % Monocytes % (Manual) 5 % Eosinophils % (Manual) 7 % Metamyelocytes % (Man) 10 % Myelocytes % (Man) 13 % Neutrophils # (Manual) 1.82 (1.40-6.50) K/uL Total Absolute Neuts 1.82 (1.4-6.5) K/uL Lymphocytes # (Manual) 0.29 L (1.2-3.4) K/uL Total Abs Lymphocytes 0.29 L (1.2-3.4) K/uL Monocytes # (Manual) 0.16 (0.11-0.59) K/uL Eosinophils # (Manual) 0.23 (0-0.50) K/uL Metamyelocytes # (Man) 0.33 H (0-0) K/uL Myelocytes # (Manual) 0.42 H (0-0) K/uL Toxic Granulation 1+ Dohle Bodies 1+ Tear Drop Cells 1+ Sodium 132 L (136-145) mmol/L Potassium 3.7 (3.5-5.1) mmol/L Chloride 100 (98-107) mmol/L Carbon Dioxide 28 (21-32) mmol/L Anion Gap 4 (3-11) BUN 7 (6-23) mg/dl Creatinine 0.49 L (0.6-1.2) mg/dl Est Cr Clr Drug Dosing 167.2 ml/min eGFR 128.34 BUN/Creatinine Ratio 14.3 (10-20) Glucose 88 (70-99(Fasting)) mg/dl Calcium 7.6 L (8.6-10.3) mg/dl Phosphorus 2.4 L (2.5-4.9) mg/dl Magnesium 1.8 (1.7-2.4) mg/dl Medications Administered Current Inpatient Medications Budesonide (Budesonide Ec 3 Mg Cap) 9 mg PO QAM [facility] Stop: 08/07/25 09:59 Last Admin: 07/09/25 08:09 Dose: 9 mg Calcium/Vitamin D (Calcium 600mg + Vit D 400 Iu Tab) 1 tab PO BID [facility] Stop: 08/07/25 08:59 Last Admin: 07/09/25 08:09 Dose: 1 tab Dicyclomine HCl (Dicyclomine Hcl 10 Mg Cap) 10 mg PO QID [facility] Stop: 08/08/25 12:59 Last Admin: 07/09/25 13:20 Dose: 10 mg Hydromorphone HCl (Hydromorphone Inj 0.5 Mg/0.5 Ml Syr) 0.25 mg IV Q4H PRN PRN Reason: Moderate Pain (Scale 4, 5, 6) Stop: 07/22/25 00:08 Last Admin: 07/08/25 02:08 Dose: 0.25 mg Hydromorphone HCl (Hydromorphone Inj 0.5 Mg/0.5 Ml Syr) 0.5 mg IV Q4H PRN PRN Reason: Severe Pain (Scale 7, 8, 9,10) Stop: 07/22/25 00:08 Lactated Ringer's (Lr) 1,000 mls @ 125 mls/hr IV .Q8H [facility] Stop: 07/11/25 00:08 Last Admin: 07/09/25 11:10 Dose: 125 mls/hr Acetaminophen (Ofirmev) 1,000 mg in 100 mls @ 400 mls/hr IV Q8H PRN PRN Reason: Pain or Fever Stop: 07/11/25 00:08 Last Infusion: 07/09/25 10:20 Dose: Infused Lactulose (Lactulose Syrup 20 Gm/30 Ml Udc) 20 gm PO DAILY PRN PRN Reason: Constipation Stop: 08/07/25 00:24 Levothyroxine Sodium (Levothyroxine Sodium 150 Mcg Tablet) 150 mcg PO DAILYBB [facility] Stop: 08/07/25 06:29 Last Admin: 07/09/25 06:10 Dose: 150 mcg Lidocaine (Lidocaine 5% 1 Patch) 1 patch TD DAILY [facility] Stop: 08/07/25 08:59 Last Admin: 07/09/25 08:07 Dose: Not Given Lidocaine/Prilocaine (Lidocaine/Prilocaine 2.5% Ea Crm) 1 each EXT DAILY PRN PRN Reason: PORT ACCESS Stop: 08/07/25 00:08 Lorazepam (Lorazepam 1 Mg Tab) 1 mg PO QID PRN PRN Reason: Anxiety Stop: 08/07/25 00:08 Mesalamine (Mesalamine 4 Gm/60 Ml Enema) 4 gm MD DAILY JOSEFA Stop: 08/07/25 15:29 Last Admin: 07/09/25 08:07 Dose: Not Given Methadone HCl (Methadone Hcl 10 Mg Tab) 30 mg PO TID [facility] Stop: 07/22/25 08:59 Last Admin: 07/09/25 08:14 Dose: 30 mg Miscellaneous (Remove Lidoderm Patch) 1 each N/A DAILY@2100 [facility] Stop: 08/07/25 20:59 Last Admin: 07/08/25 20:51 Dose: Not Given Naloxone HCl (Naloxone Hcl 0.4 Mg/1 Ml Vial/Carp) 0.1 mg IV Q5M PRN; Protocol PRN Reason: Oversedation/Resp Depression Stop: 07/22/25 00:31 Nitroglycerin (Nitroglycerin Sl 0.4 Mg/Tab Tab) 0.4 mg SL Q5M PRN PRN Reason: Chest Pain Stop: 08/07/25 00:08 Nystatin (Nystatin Susp 500,000 U/5 Ml Udc) 1 ml PO QID [facility] Stop: 07/18/25 08:59 Last Admin: 07/09/25 13:21 Dose: Not Given Ondansetron HCl (Ondansetron Inj 2 Mg/Ml 2 Ml Vial) 4 mg IV Q6H PRN PRN Reason: Nausea Stop: 08/07/25 00:08 Last Admin: 07/09/25 05:50 Dose: 4 mg Pantoprazole Sodium (Pantoprazole 40 Mg Tab) 40 mg PO BID [facility] Stop: 08/07/25 08:59 Last Admin: 07/09/25 08:09 Dose: 40 mg Pregabalin (Pregabalin 100 Mg Cap) 100 mg PO TID [facility] Stop: 08/07/25 08:59 Last Admin: 07/09/25 08:14 Dose: 100 mg Propranolol HCl (Propranolol Hcl 20 Mg Tab) 20 mg PO BID [facility] Stop: 08/07/25 08:59 Last Admin: 07/09/25 08:08 Dose: 20 mg Venlafaxine HCl (Venlafaxine Hcl 37.5 Mg Tab) 75 mg PO DAILY [facility] Stop: 08/07/25 08:59 Last Admin: 07/09/25 08:09 Dose: 75 mg Zolpidem Tartrate (Zolpidem Tartrate 5 Mg Tab) 10 mg PO HS PRN PRN Reason: Insomnia Stop: 08/07/25 00:08
[2025-07-09] MEDS: LOPERAMIDE HCL 2 MG CAP PO STA ×2 (14:16→18:02)
[2025-07-09] MEDS: PROMETHAZINE 6.25 MG/50.25 ML BAG IV STA (18:11)
[2025-07-09] MEDS: HYDROmorphone INJ 0.5 MG/0.5 ML SYR IV PRN (20:28)
[2025-07-10 07:07] LABS: Anion Gap 4.0 (3-11); Blood Urea Nitrogen 4.0 mg/dl (6-23); Calcium 7.4 mg/dl (8.6-10.3); Carbon Dioxide 30.0 mmol/L (21-32); Chloride 103.0 mmol/L (98-107); Creatinine Clr Calc Pharmacy 143.7 ml/min; Glucose 89.0 mg/dl (70-99(Fasting)); Magnesium 1.7 mg/dl (1.7-2.4); Potassium 3.3 mmol/L (3.5-5.1); Sodium 137.0 mmol/L (136-145)
[2025-07-10 07:22] LABS: Hematocrit (blood only) 21.8 % (37.0-47.0); Hemoglobin 7.3 g/dl (12.0-16.0); Mean Corpuscular Hemoglobin 31.3 pg (25.0-34.0); Mean Corpuscular Volume 93.6 fL (80.0-100.0); Platelet Count 118 K/uL (130-400); RDW Standard Deviation 59.2 fL (36.4-46.3); Red Blood Count 2.33 M/uL (4.20-5.40); White Blood Count 2.48 K/ul (4.8-10.8)
[2025-07-10 07:27] LABS: ALC (manual) 0.40 K/uL (1.2-3.4); ANC (manual) 1.74 K/uL (1.4-6.5); Anisocytosis Present; Dohle Bodies 1+; Ovalocytes 1+
[2025-07-10] MEDS: POTASSIUM CHLORIDE CRTAB 20 MEQ TABCR PO STA (09:59)
[2025-07-10] MEDS: METHADONE HCL 10 MG TAB PO SCH (10:03)
--- NOTE | 2025-07-10 10:46 | Hospitalist Progress Note ---
Date of Service July 10, 2025 Assessment & Plan (1) Tachycardia: Plan: 30-year-old female with metastatic breast cancer with metastatic to liver and bone ongoing chemo radiation/steroid treatment, history of papillary thyroid cancer status post surgery/ongoing RAIU therapy, postsurgical hypothyroidism, chronic cancer pain on methadone, scoliosis, urolithiasis, anxiety/mood disorder, history of PE not on AC presents with diarrhea and abdominal pain going on since last Tuesday. Patient was recently admitted in the hospital on 06/30/2024 and was discharged on 07/02/2025. At the time admitted for bloody diarrhea and CAT scan showed colitis and she was status post colonoscopy and biopsy of the proctitis and sigmoid colitis. Pathology came back as colitis but not in favor of ischemic colitis. CT AP showing colitis. GI has been consulted #Colitis -CT AP w/IV contrast showing enteritis and colitis -S/p colonoscopy 06/21/2025 which showed internal hemorrhoids and localized inflammation in the rectum and sigmoid colon and biopsy showed colitis. -Mild reported blood but none recently -Stool studies negative -GI started mesalamine +budesonide Plan -Appreciate GI input -Continue mesalamine+budesonide and prn bentyl -Continue diet as tolerated -Follow stool ouptu #Fever unknown origin -ROS negative for infection other than abd pain/diarrhea -No meningeal s/s -No resp or urinary symptoms -CXR clear. UA clean -CT AP w/contrast neg for abscess -Blood cx NGTD -No leg swelling to suggest DVT. She has sinus tach but this is chronic Plan -Given her persistent fevers and immunocompromised state, will ask ID to evaluate -Observe off abx for the time being -Follow up blood cultures -Follow temp, WBC #Hyponatremia -Mild asymptomatic. resolved #Pancytopenia -mostly from chemo and cancer -will follow labs -No s/s acute blood loss anemia. #Cancer pain Continue home pain medications Palliative care following, appreciate input #Metastatic breast cancer to liver and bone Following with heme-onc and radiation oncology On chemo #History of PE Completed anticoagulation in the past as per records Follow-up with heme-onc #History of papillary thyroid cancer S/p surgery/ongoing RAIU therapy Postsurgical hypothyroidism On Synthroid Anxiety/mood disorder On venlafaxine Ativan as needed DVT prophylaxis - SCDs for now Disposition - Telemetry Full code. I spent a total of 52 minutes coordinating, documenting, and providing care for this patient excluding time spent in the performance of separately billed services. This included personally reviewing all current laboratories and imaging studies, medical reconciliation, outpatient chart review and discussion with specialists Admission and Anticipated Discharge Date Admission Date: July 07, 2025 Subjective Feeling about the same today. still having non bloody loose bowel movements. some abd pain. eating without issue. Denies f/c headache vision changes neck pain/stiffness, CP palp dyspnea cough wheez dysuria polyuria. Called mother but no answer. Physical Exam Physical Exam: Vitals and labs reviewed General: Ill appearing NAD HEENT: EOMI, PERRLA Neck: Supple Cardiac: RRR no rubs gallops or murmurs Lungs: CTA no rhonchi wheezing or rales Abd: S NT ND BS positive : No mckeon MSK: Full ROM. No obvious deformities Ext: No Edema cyanosis Skin: Warm, Dry Neuro: AOx3 No focal deficits. Psych: Normal Mood Results & Data Results & Data Vital Signs (Past 12 Hours) Vital Signs Temp Pulse Pulse Resp BP Pulse Ox O2 Del Method 07/10/25 07:37 37.6 C H 107 H 20 110/71 94 Room Air 07/10/25 02:25 37 C 90 18 103/67 97 Room Air Laboratory Results Abnormal lab results 07/10/25 Range/Units 06:12 WBC 2.48 L (4.8-10.8) K/ul RBC 2.33 L (4.20-5.40) M/uL Hgb 7.3 L (12.0-16.0) g/dl Hct 21.8 L (37.0-47.0) % RDW Std Deviation 59.2 H (36.4-46.3) fL RDW Coeff of Lesa 18.2 H (11.5-14.5) % Plt Count 118 L (130-400) K/uL MPV 9.0 L (9.4-12.4) fL Lymphocytes # (Manual) 0.40 L (1.2-3.4) K/uL Total Abs Lymphocytes 0.40 L (1.2-3.4) K/uL Monocytes # (Manual) 0.10 L (0.11-0.59) K/uL Metamyelocytes # (Man) 0.05 H (0-0) K/uL Myelocytes # (Manual) 0.05 H (0-0) K/uL Potassium 3.3 L (3.5-5.1) mmol/L BUN 4 L (6-23) mg/dl Creatinine 0.57 L (0.6-1.2) mg/dl BUN/Creatinine Ratio 7.0 L (10-20) Calcium 7.4 L (8.6-10.3) mg/dl
--- NOTE | 2025-07-10 11:58 | Palliative Care Consultation ---
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 Please page with any additional concerns. Sekou Issa DNP Director, Palliative Medicine History of Present Illness Reason for Consultation: continuity of care Attending Physician: Roger Ness DO History of Present Illness Admitted with colitis, abd pain, rectal bleeding Followed by GI this admission had reaction to Perjeuta infusion and went to ED from infusion clinic - lips swelled, +hypotension, "feeling like something bad was about to happen" She is followed in OP Pall Med clinic for OIC, cancer pain, chemo rash. Home regimen for cancer pain: Methadone 20mg TID + Dilaudid 6-8 mg Q4h prn BTP/however she has only needed 2 Dilaudid tabs in the past week Reports appetite is stable +low grade fever, HR tachy but now low 100s was 180s no acute pain CASTILLO Had wig appt today that needs to be cancelled - asking if this can be done while inpatient CT Abd 07/08/25: Moderate diffuse mucosal edema is noted involving ileal loops with mild adjacent fat stranding, suggestive of enteritis changes. - new finding. Mural stratification with surrounding vascular congestion also seen in distal descending colon, sigmoid colon and rectum- possible colitis. Overall features point to the possibility of inflammatory bowel disease. Advised clinical correlation and further evaluation. Minimal pelvic ascites is noted. - new finding. Patchy sclerosis seen in pelvic bones and vertebrae. Stable. No other new interval abnormality since prior study. Allergies Allergy/AdvReac Type Severity Reaction Status Date / Time Cephalosporins Allergy Severe FACIAL Verified 06/13/25 08:31 SWELLING/HIVES vancomycin AdvReac Intermediate RED MAN Verified 06/13/25 08:31 SYNDROME Home Medications Medication Instructions Recorded Confirmed Type calcium 500 mg (as 1 tab PO BID 07/07/25 07/07/25 History carbonate)-vitamin D3 5 mcg (200 unit) tablet (Oyster Shell Calcium-Vitamin D3) hydrocortisone 1 % topical cream 1 applic HI BID 07/07/25 07/07/25 History hydromorphone 8 mg tablet 8 mg PO TID PRN Nausea And Vomiting 07/07/25 07/07/25 History lactulose 10 gram/15 mL oral 30 ml PO DAILY PRN Constipation 07/07/25 07/07/25 History solution levothyroxine 150 mcg tablet 150 mcg PO DAILY 07/07/25 07/07/25 History lidocaine 5 % topical patch 1 patch transdermal DAILY 07/07/25 07/07/25 History lidocaine-prilocaine 2.5 %-2.5 % 1 applic topical UD 07/07/25 07/07/25 History topical cream lorazepam 1 mg tablet 1 mg PO QID PRN Anxiety 07/07/25 07/07/25 History methadone 10 mg tablet 30 mg PO TID 07/07/25 07/07/25 History methylnaltrexone 8 mg/0.4 mL 8 mg subcut DAILY PRN Constipation 07/07/25 History subcutaneous syringe (Relistor) naloxone 4 mg/actuation nasal spray 1 spray intranasal Q3M PRN Opioid 07/07/25 07/07/25 History Overdose nystatin 100,000 unit/mL oral 1 ml PO QID 07/07/25 07/07/25 History suspension ondansetron 8 mg disintegrating 8 mg PO TID PRN Nausea And Vomiting 07/07/25 07/07/25 History tablet pantoprazole 40 mg tablet,delayed 40 mg PO BID 07/07/25 07/07/25 History release polyethylene glycol 3350 17 gram 17 g PO DAILY 07/07/25 07/07/25 History oral powder packet pregabalin 100 mg capsule 100 mg PO TID 07/07/25 07/07/25 History promethazine 25 mg tablet 25 mg PO QID PRN Nausea And 07/07/25 07/07/25 History Vomiting propranolol 20 mg tablet 20 mg PO BID 07/07/25 07/07/25 History sennosides 8.6 mg tablet (senna) 17.2 mg PO DAILY 07/07/25 07/07/25 History venlafaxine 75 mg tablet 75 mg PO DAILY 07/07/25 07/07/25 History zolpidem 10 mg tablet 10 mg PO HS PRN Insomnia 07/07/25 07/07/25 History Patient History Medical History Back pain Abdominal pain Generalized body aches Generalized weakness Abnormal liver ultrasound Elevated parathyroid hormone Elevated TSH Alkaline phosphatase elevation Right lumbar radiculitis History of pulmonary embolism 06/2016 tx w/ xarelto, no current anticoagulation. Sounds unprovoked Abnormal barium swallow Sore throat Encounter for pre-operative examination Ectopic SROM (spontaneous rupture of membranes) Anxiety Surgical History Port-A-Cath in place (05/23/25) Insertion of Left Internal Jugular Access Port(Left) - Mushtaq Alvarez DO, FACS History of thyroidectomy Previous back surgery Rods placed and removed Family History Grandmother (Maternal) Breast cancer Other No pertinent family history in first degree relatives Denies family history of Ovarian cancer Deep vein thrombosis Clotting disorder Colorectal cancer Pulmonary embolism Social History Smoking Status: Never smoker Tobacco Type: E-cigarettes / Vaping Second Hand Exposure: No; Do You Dip or Chew Tobacco: No; Hx Alcohol Use: No Hx Substance Use: No Preferred Language: Dutch Communication Ability: Effective Soda Clerk Required: No Beliefs That Will Affect Care: None marital status: Single marital status details: does not want FOB listed. 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 Feels Safe at Home: Yes Diet: regular during the past year weight has: remained stable Assistive Devices: None Review of Systems Review of Systems: All systems reviewed & are unremarkable except as noted in Subjective Physical Exam Physical Exam: cushingoid facies - improved hair loss/+chemo alopecia Constitutional: + ill appearing, average body habitus an d comfortable Eyes: PERRL, conjunctivae normal, anicteric sclerae ENMT: external ear and nose normal, oropharynx normal Throat: uvula midline Neck: trachea midline; neck nontender thyroid surgically removed, well healed scar Respiratory: normal respiratory effort, lungs clear to auscultation able to speak in complete sentences and symmetric chest movement; no respiratory distress Auscultation: lungs clear to auscultation bilaterally Cardiovascular: Rate/Rhythm: regular rate and regular rhythm Vessels: no JVD Extremities: normal capillary refill and + pedal edema (+1 BLE, anklet snug) trace BLE edema, +tachy Chest (Breasts): Breast: + breast mass (right breast, anterior chest wall and axillary tail) Gastrointestinal (Abdomen): Inspection/Auscultation: + abdomen distended and normal bowel sounds Percussion/Palpation: + abdomen tender and abdomen soft; no guarding Musculoskeletal: Head/Neck/Chest: normocephalic, head atraumatic, neck supple and + scalp tenderness (lesions from chemo face and scalp) Spine: + pain with cervical ROM Extremities: + limited ROM of extremities, + abnormal strength and + abnormal muscle tone Gait: + antalgic gait Skin: normal turgor, + rash, + lesion (left elbow-healing), + patchy alopecia and + hair sheds easily (chemo related) Neurologic: PERRL, EOMI, accommodation nl, no face palsy, no dysarthria Psychiatric: A+Ox3, euthymic affect Eye Contact: good eye contact Speech: normal rate/rhythm/volume of speech Mood: + depressed mood Thought Process: goal directed thought process Thought Content: + preoccupation Estimated Intelligence: consistent with education level Insight: good insight Judgment: good judgement Results & Data Vital Signs (Past 12 Hours) Vital Signs Temp Pulse Pulse Resp BP Pulse Ox O2 Del Method 07/10/25 11:03 37.7 C H 102 H 20 107/70 97 Room Air 07/10/25 07:37 37.6 C H 107 H 20 110/71 94 Room Air 07/10/25 02:25 37 C 90 18 103/67 97 Room Air Laboratory Results 07/10/25 07/09/25 07/08/25 Range/Units 06:12 06:02 05:32 WBC 2.48 L 3.25 L 4.05 L (4.8-10.8) K/ul RBC 2.33 L 2.43 L 2.90 L (4.20-5.40) M/uL Hgb 7.3 L 7.6 L 9.1 L (12.0-16.0) g/dl Hct 21.8 L 22.6 L 27.1 L (37.0-47.0) % MCV 93.6 93.0 93.4 (80.0-100.0) fL MCH 31.3 31.3 31.4 (25.0-34.0) pg MCHC 33.5 33.6 33.6 (32.0-36.0) g/dL RDW Std Deviation 59.2 H 59.1 H 59.7 H (36.4-46.3) fL RDW Coeff of Lesa 18.2 H 18.1 H 18.4 H (11.5-14.5) % Plt Count 118 L 104 L 115 L (130-400) K/uL MPV 9.0 L 9.2 L 8.9 L (9.4-12.4) fL Absolute Nucleated RBC 0.06 0.03 0.07 (0.00-0.12) K/uL Nucleated RBC % (auto) 2.4 0.9 1.7 % Neutrophils % (Manual) 70 56 58 % Lymphocytes % (Manual) 16 9 17 % Monocytes % (Manual) 4 5 8 % Eosinophils % (Manual) 4 7 11 % Basophils % (Manual) 2 % Metamyelocytes % (Man) 2 10 4 % Myelocytes % (Man) 2 13 2 % Neutrophils # (Manual) 1.74 1.82 2.35 (1.40-6.50) K/uL Total Absolute Neuts 1.74 1.82 2.35 (1.4-6.5) K/uL Lymphocytes # (Manual) 0.40 L 0.29 L 0.69 L (1.2-3.4) K/uL Total Abs Lymphocytes 0.40 L 0.29 L 0.69 L (1.2-3.4) K/uL Monocytes # (Manual) 0.10 L 0.16 0.32 (0.11-0.59) K/uL Eosinophils # (Manual) 0.10 0.23 0.45 (0-0.50) K/uL Basophils # (Manual) 0.05 (0-0.2) K/uL Metamyelocytes # (Man) 0.05 H 0.33 H 0.16 H (0-0) K/uL Myelocytes # (Manual) 0.05 H 0.42 H 0.08 H (0-0) K/uL Toxic Granulation 1+ Toxic Vacuolation 1+ Dohle Bodies 1+ 1+ 2+ Polychromasia 1+ Anisocytosis Present Tear Drop Cells 1+ 1+ Ovalocytes 1+ Sodium 137 132 L 133 L (136-145) mmol/L Potassium 3.3 L 3.7 4.0 (3.5-5.1) mmol/L Chloride 103 100 102 (98-107) mmol/L Carbon Dioxide 30 28 27 (21-32) mmol/L Anion Gap 4 4 4 (3-11) BUN 4 L 7 10 (6-23) mg/dl Creatinine 0.57 L 0.49 L 0.58 L (0.6-1.2) mg/dl Est Cr Clr Drug Dosing 143.7 167.2 141.3 ml/min eGFR 123.75 128.34 123.23 BUN/Creatinine Ratio 7.0 L 14.3 17.2 (10-20) Glucose 89 88 99 (70-99(Fasting)) mg/dl POC Glucose (70-99) mg/dl Lactate (0.4-2.0) mmol/L Calcium 7.4 L 7.6 L 7.7 L (8.6-10.3) mg/dl Phosphorus 2.7 2.4 L (2.5-4.9) mg/dl Magnesium 1.7 1.8 2.1 (1.7-2.4) mg/dl Total Bilirubin 1.5 H (0.2-1.0) mg/dl Direct Bilirubin 0.6 H (0-0.2) mg/dl AST 10 L (13-39) U/L ALT 20 (7-52) U/L Alkaline Phosphatase 51 (34-104) U/L Total Creatine Kinase (26-192) U/L Troponin I High Sens (0-14) pg/ml Total Protein 4.5 L (6.0-8.3) gm/dl Albumin 2.3 L (3.4-5.0) gm/dl Globulin (2.5-4.0) gm/dl Albumin/Globulin Ratio (0.9-2) TSH (0.300-4.500) uIu/ml Free T4 (0.61-1.60) ng/dl Urine Color Urine Appearance (Clear) Urine pH (4.5-7.5) Ur Specific [place] (1.000-1.030) Urine Protein (Negative) Urine Glucose (UA) (Negative) Urine Ketones (Negative) Urine Blood (Negative) Urine Nitrite (Negative) Urine Bilirubin (Negative) Urine Urobilinogen (Negative) Ur Leukocyte Esterase (Negative) Urine WBC (Auto) (0-5) /hpf Urine RBC (Auto) (0-2) /hpf U Hyaline Cast (Auto) (0-2) /lpf U Epithel Cells (Auto) (0-2) /hpf Urine Bacteria (Auto) (None Seen) Urine Comment Stl C. cayetanensis PCR (NotDetected) Stool Rotavirus A PCR (NotDetected) Stl Adenov F 40/41 PCR (NotDetected) Stool Astrovirus (PCR) (NotDetected) Stool Campylobacter PCR (NotDetected) Stl C. diff Tox B Gene (Neg) Stl C. diff 027-NAP1-BI Stool Cryptosporidium PCR (NotDetected) Stl E.coli Shiga Tox PCR (NotDetected) Stl Enterotoxigenic E PCR (NotDetected) Stool EPEC (PCR) (NotDetected) Stool EAEC (PCR) (NotDetected) Stl E. histolytica PCR (NotDetected) Stool Giardia Lamblia PCR (NotDetected) Stool Salmonella PCR (NotDetected) Stool Sapovirus (PCR) (NotDetected) Stl P. shigelloides PCR (NotDetected) Stl Shigella/EIEC PCR (NotDetected) St Y.enterocolitica PCR (NotDetected) Stool Vibrio (PCR) (NotDetected) Stl Vibrio cholerae PCR (NotDetected) Stl Norovirus GI/GII PCR (NotDetected) 07/08/25 07/08/25 07/07/25 Range/Units 02:06 01:17 19:57 WBC 3.85 L (4.8-10.8) K/ul RBC 3.37 L (4.20-5.40) M/uL Hgb 10.6 L (12.0-16.0) g/dl Hct 31.2 L (37.0-47.0) % MCV 92.6 (80.0-100.0) fL MCH 31.5 (25.0-34.0) pg MCHC 34.0 (32.0-36.0) g/dL RDW Std Deviation 59.1 H (36.4-46.3) fL RDW Coeff of Lesa 18.5 H (11.5-14.5) % Plt Count 123 L (130-400) K/uL MPV 9.0 L (9.4-12.4) fL Absolute Nucleated RBC 0.13 H (0.00-0.12) K/uL Nucleated RBC % (auto) 3.4 % Neutrophils % (Manual) 44 % Lymphocytes % (Manual) 25 % Monocytes % (Manual) 8 % Eosinophils % (Manual) 16 % Basophils % (Manual) % Metamyelocytes % (Man) 2 % Myelocytes % (Man) 5 % Neutrophils # (Manual) 1.69 (1.40-6.50) K/uL Total Absolute Neuts 1.69 (1.4-6.5) K/uL Lymphocytes # (Manual) 0.96 L (1.2-3.4) K/uL Total Abs Lymphocytes 0.96 L (1.2-3.4) K/uL Monocytes # (Manual) 0.31 (0.11-0.59) K/uL Eosinophils # (Manual) 0.62 H (0-0.50) K/uL Basophils # (Manual) (0-0.2) K/uL Metamyelocytes # (Man) 0.08 H (0-0) K/uL Myelocytes # (Manual) 0.19 H (0-0) K/uL Toxic Granulation Toxic Vacuolation 2+ Dohle Bodies 1+ Polychromasia 1+ Anisocytosis Tear Drop Cells Ovalocytes Sodium 131 L (136-145) mmol/L Potassium 3.5 (3.5-5.1) mmol/L Chloride 98 (98-107) mmol/L Carbon Dioxide 26 (21-32) mmol/L Anion Gap 7 (3-11) BUN 12 (6-23) mg/dl Creatinine 0.67 (0.6-1.2) mg/dl Est Cr Clr Drug Dosing 122.3 ml/min eGFR 119.02 BUN/Creatinine Ratio 17.9 (10-20) Glucose 100 H (70-99(Fasting)) mg/dl POC Glucose 112 H (70-99) mg/dl Lactate 1.0 (0.4-2.0) mmol/L Calcium 7.5 L (8.6-10.3) mg/dl Phosphorus (2.5-4.9) mg/dl Magnesium 1.7 (1.7-2.4) mg/dl Total Bilirubin 1.9 H (0.2-1.0) mg/dl Direct Bilirubin (0-0.2) mg/dl AST 12 L (13-39) U/L ALT 26 (7-52) U/L Alkaline Phosphatase 63 (34-104) U/L Total Creatine Kinase 45 (26-192) U/L Troponin I High Sens 6.0 (0-14) pg/ml Total Protein 5.0 L (6.0-8.3) gm/dl Albumin 2.5 L (3.4-5.0) gm/dl Globulin 2.5 (2.5-4.0) gm/dl Albumin/Globulin Ratio 1.0 (0.9-2) TSH 5.575 H (0.300-4.500) uIu/ml Free T4 0.87 (0.61-1.60) ng/dl Urine Color [place] Urine Appearance Clear (Clear) Urine pH 5.5 (4.5-7.5) Ur Specific [place] 1.020 (1.000-1.030) Urine Protein 1+ H (Negative) Urine Glucose (UA) Negative (Negative) Urine Ketones 1+ H (Negative) Urine Blood Negative (Negative) Urine Nitrite Negative (Negative) Urine Bilirubin 1+ H (Negative) Urine Urobilinogen Negative (Negative) Ur Leukocyte Esterase Trace H (Negative) Urine WBC (Auto) 0-5 (0-5) /hpf Urine RBC (Auto) 0-2 (0-2) /hpf U Hyaline Cast (Auto) 0-2 (0-2) /lpf U Epithel Cells (Auto) 3-5 H (0-2) /hpf Urine Bacteria (Auto) None Seen (None Seen) Urine Comment Stl C. cayetanensis PCR Not Detected (NotDetected) Stool Rotavirus A PCR Not Detected (NotDetected) Stl Adenov F 40/41 PCR Not Detected (NotDetected) Stool Astrovirus (PCR) Not Detected (NotDetected) Stool Campylobacter PCR Not Detected (NotDetected) Stl C. diff Tox B Gene Negative Cdiff Gene (Neg) Stl C. diff 027-NAP1-BI NEGATIVE Stool Cryptosporidium PCR Not Detected (NotDetected) Stl E.coli Shiga Tox PCR Not Detected (NotDetected) Stl Enterotoxigenic E PCR Not Detected (NotDetected) Stool EPEC (PCR) Not Detected (NotDetected) Stool EAEC (PCR) Not Detected (NotDetected) Stl E. histolytica PCR Not Detected (NotDetected) Stool Giardia Lamblia PCR Not Detected (NotDetected) Stool Salmonella PCR Not Detected (NotDetected) Stool Sapovirus (PCR) Not Detected (NotDetected) Stl P. shigelloides PCR Not Detected (NotDetected) Stl Shigella/EIEC PCR Not Detected (NotDetected) St Y.enterocolitica PCR Not Detected (NotDetected) Stool Vibrio (PCR) Not Detected (NotDetected) Stl Vibrio cholerae PCR Not Detected (NotDetected) Stl Norovirus GI/GII PCR Not Detected (NotDetected) Diagnostic Findings Chest X-Ray 07/07/25 19:33 Exam(s): XR CXR 1 VIEW EXAM: XR Chest, 1 View CLINICAL HISTORY: Reason for exam: weakness. TECHNIQUE: Frontal view of the chest. COMPARISON: July 05, 2025. FINDINGS: Lungs: Unremarkable. No acute infiltration, atelectasis or mass. Pleural space: Unremarkable. No pneumothorax or pleural fluid. Heart: Unremarkable. No cardiomegaly. Mediastinum: Unremarkable. Normal mediastinal contour. Bones/joints: No acute findings. Tubes, lines and devices: An infusion port and catheter are stable. IMPRESSION: No acute findings in the chest. Electronically signed by: Reza Cortez MD 07/07/25 22:51 PM Abdomen/Pelvis CT 07/08/25 01:05 EXAM: CT abd pelvis IV con only CLINICAL HISTORY: abd pain, mild rectal bleed TECHNIQUE: Contiguous axial images were obtained from the level of the diaphragm to the pubic symphysis with intravenous contrast. Coronal and sagittal reconstructions were likewise performed and were indicated to increase the sensitivity for detecting clinically relevant pathology. If IV contrast material had not been administered, the likelihood of detecting abnormalities relevant to the patient's condition would have been substantially decreased. The CT scan was performed according to ALARA (as low as reasonably achievable). 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 FINDINGS: The visualized lung bases are clear. The liver is normal in size and attenuation. No focal liver lesions are seen. There is no intra- or extrahepatic biliary ductal dilatation. Hepatic vasculature is patent. The gallbladder is present. The spleen, pancreas, and adrenal glands are unremarkable. The kidneys are normal in size and attenuation. There is no hydronephrosis or perinephric fat stranding. No renal calculi or renal masses are identified. The ureters are normal in caliber, and no ureteral calculi are seen. The bladder is normal in contour. Pelvic viscera are unremarkable. IUCD is seen in situ. No focal or diffuse bowel wall thickening or evidence of bowel obstruction is identified. There is no imaging evidence of appendicitis. Abdominal and pelvic vasculature is patent. No aggressive appearing osseous lesions are identified. Patchy sclerosis seen in pelvic bones and vertebrae. Moderate diffuse mucosal edema is noted involving ileal loops with mild adjacent fat stranding, suggestive of enteritis changes. Mural stratification with surrounding vascular congestion also seen in distal descending colon, sigmoid colon and rectum- possible colitis. Minimal pelvic ascites is noted. IMPRESSION: Moderate diffuse mucosal edema is noted involving ileal loops with mild adjacent fat stranding, suggestive of enteritis changes. - new finding. Mural stratification with surrounding vascular congestion also seen in distal descending colon, sigmoid colon and rectum- possible colitis. Overall features point to the possibility of inflammatory bowel disease. Advised clinical correlation and further evaluation. Minimal pelvic ascites is noted. - new finding. Patchy sclerosis seen in pelvic bones and vertebrae. Stable. No other new interval abnormality since prior study. Electronically signed by Joe Limon 07-08-2025 03:58 AM PG Care Time/CCT Total # of Minutes Spent Total Time Spent with Patient: Total time spent is greater than 50% in coordination of care (as documented) at patient's floor/unit and/or counseling patient: I spent 60 minutes overall addressing this case: 15 min in medical data review/discussion with referring provider(s) and/or preparation for the visit 15 min in direct interaction with the patient/exam 000 min in Advance Care Planning/Goals of Care discussions as detailed above in note (must be >16min) 15 min in subsequent review and synthesis of assessment and plan 15 min communicating with other providers regarding the patient's case: [place] [address] IN/OBS CONSULT LVL 4,60M Patient Type New History Comprehensive Exam Comprehensive Medical Decision Making High Complexity Diagnoses Encounter for monitoring cardiotoxic drug therapy Z51.81; Z79.899 Chronic, continuous use of opioids F11.90 Cancer related pain G89.3 Palliative care by specialist Z51.5 Comment [id number]
--- NOTE | 2025-07-10 13:26 | Gastroenterology Progress Note ---
Date of Service July 10, 2025 Assessment & Plan (1) Colitis: Plan: Diarrhea improving. Bleeding resolved. -Continue Budesonide 9 mg po daily. -Continue Rowasa nightly. -Did discuss that some foods may aggravate her colitis. We discussed paying attention to her diet to see if dairy, high fiber, or high fat foods worsen her symptoms. Admission and Anticipated Discharge Date Admission Date: July 07, 2025 Supervising Physician Co-Signing Physician Notes Less bloody diarrhea. She did have an appetite this morning. Still notes decreased appetite over baseline. Still some abdominal cramping. Lets persist with the budesonide and there are ways suppository or enema for another day or 2 if persistent symptoms could consider a short course of systemic steroids. Mini Garner is a 30 yo female with colitis & proctitis. She is on Budesonide and Rowasa. She notes that she is feeling better. Rectal bleeding has stopped. She notes less volume of diarrhea. She is eating more. Review of Systems Gastrointestinal: + diarrhea/loose stools (improving); no abdominal pain Physical Exam Constitutional: well developed Respiratory: normal respiratory effort Psychiatric: Orientation: alert and oriented x 3 Results & Data Results & Data Vital Signs (Past 12 Hours) Vital Signs Temp Pulse Pulse Resp BP Pulse Ox O2 Del Method 07/10/25 11:03 37.7 C H 102 H 20 107/70 97 Room Air 07/10/25 07:37 37.6 C H 107 H 20 110/71 94 Room Air 07/10/25 02:25 37 C 90 18 103/67 97 Room Air PG Care Time/CCT Total # of Minutes Spent Total Time Spent with Patient: Total time spent is greater than 50% in coordination of care (as documented) at patient's floor/unit and/or counseling patient: Coding Level of Care Code 05842 SUB INP/OBS CARE 2/35MIN Diagnoses Colitis K52.9
[2025-07-11 08:13] LABS: Hematocrit (blood only) 22.6 % (37.0-47.0); Hemoglobin 7.5 g/dl (12.0-16.0); Mean Corpuscular Hemoglobin 31.4 pg (25.0-34.0); Mean Corpuscular Volume 94.6 fL (80.0-100.0); Platelet Count 116 K/uL (130-400); RDW Standard Deviation 60.8 fL (36.4-46.3); Red Blood Count 2.39 M/uL (4.20-5.40); White Blood Count 2.76 K/ul (4.8-10.8)
[2025-07-11 08:25] LABS: ALC (manual) 0.28 K/uL (1.2-3.4); ANC (manual) 2.07 K/uL (1.4-6.5); Anion Gap 6.0 (3-11); Blood Urea Nitrogen 5.0 mg/dl (6-23); Calcium 7.4 mg/dl (8.6-10.3); Carbon Dioxide 28.0 mmol/L (21-32); Chloride 98.0 mmol/L (98-107); Creatinine Clr Calc Pharmacy 160.7 ml/min; Dohle Bodies 1+; Glucose 97.0 mg/dl (70-99(Fasting)); Potassium 3.4 mmol/L (3.5-5.1); Sodium 132.0 mmol/L (136-145); Tear Drop Cells 1+; Toxic Granulation 1+
--- NOTE | 2025-07-11 09:59 | Hospitalist Progress Note ---
Date of Service July 11, 2025 Assessment & Plan (1) Tachycardia: Plan: 30-year-old female with metastatic breast cancer with metastatic to liver and bone ongoing chemo radiation/steroid treatment, history of papillary thyroid cancer status post surgery/ongoing RAIU therapy, postsurgical hypothyroidism, chronic cancer pain on methadone, scoliosis, urolithiasis, anxiety/mood disorder, history of PE not on AC presents with diarrhea and abdominal pain going on since last Tuesday. Patient was recently admitted in the hospital on 06/30/2024 and was discharged on 07/02/2025. At the time admitted for bloody diarrhea and CAT scan showed colitis and she was status post colonoscopy and biopsy of the proctitis and sigmoid colitis. Pathology came back as colitis but not in favor of ischemic colitis. CT AP showing colitis. GI has been consulted #Colitis -CT AP w/IV contrast showing enteritis and colitis -S/p colonoscopy 06/21/2025 which showed internal hemorrhoids and localized inflammation in the rectum and sigmoid colon and biopsy showed colitis. -Mild reported blood but none recently -Stool studies negative -GI started mesalamine +budesonide -Stool frequency improving Plan -Appreciate GI input -Continue mesalamine+budesonide and prn bentyl -Continue diet as tolerated -Follow stool ouptu #Fever unknown origin -ROS negative for infection other than abd pain/diarrhea -No meningeal s/s -No resp or urinary symptoms -CXR clear. UA clean -CT AP w/contrast neg for abscess -Blood cx NGTD -No leg swelling to suggest DVT. She has sinus tach but this is chronic -Afebrile now for about 20 hours Plan -Given her persistent fevers and immunocompromised state, will ask ID to evaluate -Observe off abx for the time being -Follow up blood cultures -Follow temp, WBC #Hypokalemia- replace and follow #Hyponatremia -Mild asymptomatic. resolved #Pancytopenia -mostly from chemo and cancer -will follow labs -No s/s acute blood loss anemia. #Cancer pain Continue home pain medications Palliative care following, appreciate input #Metastatic breast cancer to liver and bone Following with heme-onc and radiation oncology On chemo #History of PE Completed anticoagulation in the past as per records Follow-up with heme-onc #History of papillary thyroid cancer S/p surgery/ongoing RAIU therapy Postsurgical hypothyroidism On Synthroid Anxiety/mood disorder On venlafaxine Ativan as needed DVT prophylaxis - SCDs for now Disposition - Telemetry Full code. I spent a total of 49 minutes coordinating, documenting, and providing care for this patient excluding time spent in the performance of separately billed ser vices. This included personally reviewing all current laboratories and imaging studies, medical reconciliation, outpatient chart review and discussion with specialists Admission and Anticipated Discharge Date Admission Date: July 07, 2025 Subjective Feeling ok today. her bowel movement frequency has greatly decreased since yesterday. no fevers. Patient denies CP, palpitations, SOB, dyspnea, abd pain, N/V/D. endorsing LBP which is chronic Physical Exam Physical Exam: Vitals and labs reviewed General: Ill appearing NAD HEENT: EOMI, PERRLA Neck: Supple Cardiac: RRR no rubs gallops or murmurs Lungs: CTA no rhonchi wheezing or rales Abd: S NT ND BS positive : No mckeon MSK: Full ROM. No obvious deformities Ext: No Edema cyanosis Skin: Warm, Dry Neuro: AOx3 No focal deficits. Psych: Normal Mood Results & Data Results & Data Vital Signs (Past 12 Hours) Vital Signs Temp Pulse Pulse Resp BP Pulse Ox O2 Del Method 07/11/25 08:02 37.0 C 103 H 19 113/76 96 Room Air 07/11/25 03:03 36.2 C L 86 18 104/71 99 Room Air 07/11/25 01:00 07/10/25 23:15 36.3 C L 80 18 104/68 98 Room Air 07/10/25 22:10 82 O2 Del Method 07/11/25 08:02 07/11/25 03:03 07/11/25 01:00 Room Air 07/10/25 23:15 07/10/25 22:10 Laboratory Results Abnormal lab results 07/11/25 Range/Units 07:46 WBC 2.76 L (4.8-10.8) K/ul RBC 2.39 L (4.20-5.40) M/uL Hgb 7.5 L (12.0-16.0) g/dl Hct 22.6 L (37.0-47.0) % RDW Std Deviation 60.8 H (36.4-46.3) fL RDW Coeff of Lesa 18.3 H (11.5-14.5) % Plt Count 116 L (130-400) K/uL MPV 9.1 L (9.4-12.4) fL Lymphocytes # (Manual) 0.28 L (1.2-3.4) K/uL Total Abs Lymphocytes 0.28 L (1.2-3.4) K/uL Monocytes # (Manual) 0.06 L (0.11-0.59) K/uL Metamyelocytes # (Man) 0.06 H (0-0) K/uL Myelocytes # (Manual) 0.06 H (0-0) K/uL Sodium 132 L (136-145) mmol/L Potassium 3.4 L (3.5-5.1) mmol/L BUN 5 L (6-23) mg/dl Creatinine 0.51 L (0.6-1.2) mg/dl BUN/Creatinine Ratio 9.8 L (10-20) Calcium 7.4 L (8.6-10.3) mg/dl
[2025-07-11] MEDS: POTASSIUM CHLORIDE CRTAB 20 MEQ TABCR PO STA (10:33)
--- NOTE | 2025-07-11 11:58 | Gastroenterology Progress Note ---
Date of Service July 11, 2025 Assessment & Plan (1) Colitis: Plan: -Continue Budesonide 9 mg po daily -Continue Rowasa nightly -Obtain KUB--do suspect patient may be constipated based on her currently symptoms -Further recommendations pending results Admission and Anticipated Discharge Date Admission Date: July 07, 2025 Supervising Physician Co-Signing Physician Notes X-ray shows moderate stool. No impaction no colonic dilatation. Diarrhea resolved. Consider suppository or enema tomorrow if symptoms persist. Subjective Patient is a 30 yo female with colitis. Today she notes she has had resolution of diarrhea over the past 18 hours. She notes hard stool and abdominal pain and feels constipated, bloated, and like she is incompletely evacuating. Her abdomen is distended. She is eating. Review of Systems Constitutional: no fever and no chills Gastrointestinal: + abdominal pain and + constipation Physical Exam Constitutional: well developed Respiratory: normal respiratory effort Gastrointestinal (Abdomen): Inspection/Auscultation: + abdomen distended and normal bowel sounds Percussion/Palpation: abdomen soft Psychiatric: Orientation: alert and oriented x 3 Results & Data Results & Data Vital Signs (Past 12 Hours) Vital Signs Temp Pulse Pulse Resp BP Pulse Ox O2 Del Method 07/11/25 11:27 38.0 C H 113 H 20 112/70 99 Room Air 07/11/25 08:02 37.0 C 103 H 19 113/76 96 Room Air 07/11/25 05:46 91 H 07/11/25 03:03 36.2 C L 86 18 104/71 99 Room Air 07/11/25 01:00 O2 Del Method 07/11/25 11:27 07/11/25 08:02 07/11/25 05:46 07/11/25 03:03 07/11/25 01:00 Room Air PG Care Time/CCT Total # of Minutes Spent Total Time Spent with Patient: Total time spent is greater than 50% in coordination of care (as documented) at patient's floor/unit and/or counseling patient: Coding Level of Care Code 56459 SUB INP/OBS CARE 2/35MIN Diagnoses Colitis K52.9
[2025-07-11] MEDS: ACETAMINOPHEN 500 MG TAB PO PRN (12:06)
--- NOTE | 2025-07-11 12:48 | XRay Report ---
KUB HISTORY: Assess stool burden COMPARISON STUDY: 06/20/2025 x-ray and CT of 07/08/2025 FINDINGS: Stable IUD. There is moderate retained stool. No bowel obstruction seen. No gross free air. Stable spinal degenerative changes. IMPRESSION: Moderate retained stool. ACT 112: Negative or not required by law. The above report was generated using voice recognition software. It may contain grammatical, syntax o r spelling errors. Electronically signed by: Mushtaq Corona M.D. 07/11/2025 12:47 PM
--- NOTE | 2025-07-11 14:33 | Infectious Disease Consult ---
Date of Service July 11, 2025 Telehealth Information I performed this visit using a real-time telehealth connection between my location and the patients location ([facility]). After connecting through interactive tele-video, patient was identified by name and date of and/or wristband check.Patient (or authorized healthcare cash posting representative) was informed that this was a telemedicine visit and it was being conducted confidentially over secure lines. My office door was closed and no o ne else was present in the room with me.Patient (or authorized healthcare cash posting representative) provided consent to proceed with the visit, expressed an understanding of privacy and security of the telemedicine visit, and gave permission to have a hospital cash posting representative in the room in order to assist with the visit and to conduct portions of the visit, as needed. I informed the patient (or authorized healthcare cash posting representative) that I reviewed their record and presented the opportunity for them to ask any questions regarding the visit today. The patient agreed to participate. Assessment & Plan (1) Fever: (2) Colitis: (3) Carcinoma of breast, stage 4: Plan At this point, the intermittent low-grade fever is likely noninfectious, and it could be either secondary to her colitis or malignancy. Therefore, I would recommend continuing to monitor off antibiotics at this point. Thank you for consulting Infectious Disease. We will sign off for now. History of Present Illness History of Present Illness Patsy is a 30-year-old woman with past medical history of stage IV breast cancer with metastases to the liver and bone on palliative chemotherapy who was admitted to the hospital on 07/07/2025 because of persistent diarrhea and worsening abdominal pain. She was recently admitted to the hospital for the same reason (from 06/30 until 07/02). At that time CT scan showed colitis and colonoscopy with biopsy was performed with pathology showing simple inflammation without any other pathologies. The patient mentioned that after discharge, her abdominal pain kept getting worse with worsening diarrhea and associated with bleeding per rectum which prompted her to come to the Emergency Department. On presentation, she was tachycardic at 1:49 a.m., hypotensive at 80/52, afebrile but spiked couple of episodes of fever on 07/08 (38.3) and 07/11 (38). Initial workup showed low white count of 3.85, normocytic anemia with a hemoglobin 10.6 and platelet count of 123, hyponatremia of 131, total bilirubin of 1.9, and UA with 0-5 WBCs and no bacteria, negative C diff PCR and GI pathogen panel. A CT of the abdomen and pelvis was performed which demonstrated mucosal edema diffuse along the ileal loops suggesting enteritis as well as mural stratification with surrounding vascular congestion in distal descending colon, sigmoid colon and rectum. ID team was consulted for further recommendations especially with her episodes of fever from time to time. Allergies Allergy/AdvReac Type Severity Reaction Status Date / Time Cephalosporins Allergy Severe FACIAL Verified 06/13/25 08:31 SWELLING/HIVES vancomycin AdvReac Intermediate RED MAN Verified 06/13/25 08:31 SYNDROME Home Medications Medication Instructions Recorded Confirmed Type calcium 500 mg (as 1 tab PO BID 07/07/25 07/07/25 History carbonate)-vitamin D3 5 mcg (200 unit) tablet (Oyster Shell Calcium-Vitamin D3) hydrocortisone 1 % topical cream 1 applic [place] BID 07/07/25 07/07/25 History hydromorphone 8 mg tablet 8 mg PO TID PRN Nausea And Vomiting 07/07/25 07/07/25 History lactulose 10 gram/15 mL oral 30 ml PO DAILY PRN Constipation 07/07/25 07/07/25 History solution levothyroxine 150 mcg tablet 150 mcg PO DAILY 07/07/25 07/07/25 History lidocaine 5 % topical patch 1 patch transdermal DAILY 07/07/25 07/07/25 History lidocaine-prilocaine 2.5 %-2.5 % 1 applic topical UD 07/07/25 07/07/25 History topical cream lorazepam 1 mg tablet 1 mg PO QID PRN Anxiety 07/07/25 07/07/25 History methadone 10 mg tablet 30 mg PO TID 07/07/25 07/07/25 History methylnaltrexone 8 mg/0.4 mL 8 mg subcut DAILY PRN Constipation 07/07/25 07/07/25 History subcutaneous syringe (Relistor) naloxone 4 mg/actuation nasal spray 1 spray intranasal Q3M PRN Opioid 07/07/25 07/07/25 History Overdose nystatin 100,000 unit/mL oral 1 ml PO QID 07/07/25 07/07/25 History suspension ondansetron 8 mg disintegrating 8 mg PO TID PRN Nausea And Vomiting 07/07/25 07/07/25 History tablet pantoprazole 40 mg tablet,delayed 40 mg PO BID 07/07/25 07/07/25 History release polyethylene glycol 3350 17 gram 17 g PO DAILY 07/07/25 07/07/25 History oral powder packet pregabalin 100 mg capsule 100 mg PO TID 07/07/25 07/07/25 History promethazine 25 mg tablet 25 mg PO QID PRN Nausea And 07/07/25 07/07/25 History Vomiting propranolol 20 mg tablet 20 mg PO BID 07/07/25 07/07/25 History sennosides 8.6 mg tablet (senna) 17.2 mg PO DAILY 07/07/25 07/07/25 History venlafaxine 75 mg tablet 75 mg PO DAILY 07/07/25 07/07/25 History zolpidem 10 mg tablet 10 mg PO HS PRN Insomnia 07/07/25 07/07/25 History Patient History Medical History Back pain Abdominal pain Generalized body aches Generalized weakness Abnormal liver ultrasound Elevated parathyroid hormone Elevated TSH Alkaline phosphatase elevation Right lumbar radiculitis History of pulmonary embolism 06/2016 tx w/ xarelto, no current anticoagulation. Sounds unprovoked Abnormal barium swallow Sore throat Encounter for pre-operative examination Ectopic SROM (spontaneous rupture of membranes) Anxiety Surgical History Port-A-Cath in place (05/23/25) Insertion of Left Internal Jugular Access Port(Left) - Mushtaq Alvarez, , FACS History of thyroidectomy Previous back surgery Rods placed and removed Family History Grandmother (Maternal) Breast cancer Other No pertinent family history in first degree relatives Denies family history of Ovarian cancer Deep vein thrombosis Clotting disorder Colorectal cancer Pulmonary embolism Social History Smoking Status: Never smoker Tobacco Type: E-cigarettes / Vaping Second Hand Exposure: No; Do You Dip or Chew Tobacco: No; Hx Alcohol Use: No Hx Substance Use: No Preferred Language: Burmese Communication Ability: Effective 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 Feels Safe at Home: Yes Diet: regular during the past year weight has: remained stable Assistive Devices: None Review of Systems Negative except for what was mentioned in the H&P. Physical Exam Could not be performed as the visit was conducted via TeleMed. Results & Data Vital Signs (Past 12 Hours) Vital Signs Temp Pulse Pulse Resp BP Pulse Ox O2 Del Method 07/11/25 11:27 38.0 C H 113 H 20 112/70 99 Room Air 07/11/25 08:02 37.0 C 103 H 19 113/76 96 Room Air 07/11/25 05:46 91 H 07/11/25 03:03 36.2 C L 86 18 104/71 99 Room Air Laboratory Results Microbiology: 07/07: 2 sets of blood culture negative to date Diagnostic Findings CT abdomen pelvis on 07/08: Moderate diffuse mucosal edema is noted involving ileal loops with mild adjacent fat stranding, suggestive of enteritis changes. - new finding. Mural stratification with surrounding vascular congestion also seen in distal descending colon, sigmoid colon and rectum- possible colitis. Overall features point to the possibility of inflammatory bowel disease. Advised clinical correlation and further evaluation. Minimal pelvic ascites is noted. - new finding. Patchy sclerosis seen in pelvic bones and vertebrae. Stable. No other new interval abnormality since prior study. (1) Fever Fever type: unspecified Qualified Code(s): R50.9 - Fever, unspecified
[2025-07-11] MEDS: MESALAMINE 4 GM/60 ML ENEMA PR SCH (20:09)
[2025-07-12 03:33] LABS: Appearance Urine Clear (Clear); Bacteria Urine Automated None Seen (None Seen); Cast Urine Automated 0-2 /lpf (0-2); Epithelial Cell Urine Auto 0-2 /hpf (0-2); Glucose Urine UA Negative (Negative); RBC Urine Automated 0-2 /hpf (0-2); WBC Urine Automated 0-5 /hpf (0-5)
[2025-07-12 07:46] VITALS: RESP 20
[2025-07-12] MEDS: LACTULOSE SYRUP 20 GM/30 ML UDC PO PRN (08:37)
--- NOTE | 2025-07-12 10:00 | Discharge Summary ---
Discharge Summary Date of Service July 12, 2025 Principal Dx & Hospital Course #1 = Principal Diagnosis (1) Tachycardia: 30-year-old female with metastatic breast cancer with metastatic to liver and bone ongoing chemo radiation/steroid treatment, history of papillary thyroid cancer status post surgery/ongoing RAIU therapy, postsurgical hypothyroidism, chronic cancer pain on methadone, scoliosis, urolithiasis, anxiety/mood disorder, history of PE not on AC presents with diarrhea and abdominal pain going on since last Tuesday. Patient was recently admitted in the hospital on 06/30/2024 and was discharged on 07/02/2025. At the time admitted for bloody diarrhea and CAT scan showed colitis and she was status post colonoscopy and biopsy of the proctitis and sigmoid colitis. Pathology came back as colitis but not in favor of ischemic colitis. CT AP showing colitis. GI was consulted. She was started on mesalamine and budesonide with improvement in her stool output and pain. She had low grade intermittent fevers during her stay. there was no s ource of infection other than the colitis. cultures negative. no urinary or resp symptoms. ID was consulted, etiology likely from colitis or malignancy. No abx were administered for the fevers. Today she is feeling better and wishes to go home. D/w GI, ok for discharge on mesalamine and budesonide x 2 weeks. She is to f/u with her oncology team and palliative care team as OP. Vitals and labs are stable for DC home today. #Colitis -CT AP w/IV contrast showing enteritis and colitis -S/p colonoscopy 06/21/2025 which showed internal hemorrhoids and localized inflammation in the rectum and sigmoid colon and biopsy showed colitis. -Mild reported blood but none recently -Stool studies negative -GI started mesalamine +budesonide -Stool frequency improving #Fever unknown origin -ROS negative for infection other than abd pain/diarrhea -No meningeal s/s -No resp or urinary symptoms -CXR clear. UA clean -CT AP w/contrast neg for abscess -Blood cx NGTD -No leg swelling to suggest DVT. She has sinus tach but this is chronic -ID input; no abx. likely from colitis or malignancy #Hypokalemia- replace and follow #Hyponatremia -Mild asymptomatic. resolved #Pancytopenia -mostly from chemo and cancer -will follow labs -No s/s acute blood loss anemia. #Cancer pain Continue home pain medications Palliative care following, appreciate input #Metastatic breast cancer to liver and bone Following with heme-onc and radiation oncology On chemo #History of PE Completed anticoagulation in the past as per records Follow-up with heme-onc #History of papillary thyroid cancer S/p surgery/ongoing RAIU therapy Postsurgical hypothyroidism On Synthroid Anxiety/mood disorder On venlafaxine Ativan as needed DVT prophylaxis - SCDs for now Disposition - Telemetry Full code. I spent a total of 52 minutes coordinating, documenting, and providing care for this patient excluding time spent in the performance of separately billed services. This included personally reviewing all current laboratories and imaging studies, medical reconciliation, outpatient chart review and discussion with specialists Notes For Next Care Provider Medication Changes From Visit Mesalamine suppository and budesonide x 2 weeks Bentyl PRN Admission HPI Per Admitting Provider 30-year-old female with metastatic breast cancer with metastatic to liver and bone ongoing chemo radiation/steroid treatment, history of papillary thyroid cancer status post surgery/ongoing RAIU therapy, postsurgical hypothyroidism, chronic cancer pain on methadone, scoliosis, urolithiasis, anxiety/mood disorder, history of PE status post anticoagulation presents with diarrhea and abdominal pain going on since last Tuesday. Patient was in the ER on 07/05/2025 when she had a reaction while getting chemo and did okay and got discharged. That day chemo was not given because of the reaction. Because of ongoing diarrhea several times associated with abdominal pain and small amount of blood in the rectum she came to the ER today. Says she is not eating or drinking , appetite is not great. Was nauseous. In the ER is she is tachycardic. Denies any fevers. No chest pain or shortness of breath. No headache no runny nose or sore throat. No cough. Patient was recently admitted in the hospital on 06/30/2024 and was discharged on 07/02/2025. At the time admitted for bloody diarrhea and CAT scan showed colitis and she was status post colonoscopy and biopsy of the proctitis and sigmoid colitis. Pathology came back as colitis but not in favor of ischemic colitis. Past medical history present mentioned above Past surgical history. Total thyroidectomy. [place] [facility] [place]. Family history. Thyroid disorder. Asthma. Social history. Vape use. Occasional alcohol use. Discharge Exam Vitals and labs reviewed General: Ill appearing NAD HEENT: EOMI, PERRLA Neck: Supple Cardiac: RRR no rubs gallops or murmurs Lungs: CTA no rhonchi wheezing or rales Abd: S NT ND BS positive : No mckeon MSK: Full ROM. No obvious deformities Ext: No Edema cyanosis Skin: Warm, Dry Neuro: AOx3 No focal deficits. Psych: Normal Mood Updated Medication List Medication Instructions Recorded Confirmed Type calcium 500 mg (as 1 tab PO BID 07/07/25 07/07/25 History carbonate)-vitamin D3 5 mcg (200 unit) tablet (Oyster Shell Calcium-Vitamin D3) hydrocortisone 1 % topical cream 1 applic [place] BID 07/07/25 07/07/25 History hydromorphone 8 mg tablet 8 mg PO TID PRN Nausea And Vomiting 07/07/25 07/07/25 History lactulose 10 gram/15 mL oral 30 ml PO DAILY PRN Constipation 07/07/25 07/07/25 History solution levothyroxine 150 mcg tablet 150 mcg PO DAILY 07/07/25 07/07/25 History lidocaine 5 % topical patch 1 patch transdermal DAILY 07/07/25 07/07/25 History lidocaine-prilocaine 2.5 %-2.5 % 1 applic topical UD 07/07/25 07/07/25 History topical cream lorazepam 1 mg tablet 1 mg PO QID PRN Anxiety 07/07/25 07/07/25 History methadone 10 mg tablet 30 mg PO TID 07/07/25 07/07/25 History methylnaltrexone 8 mg/0.4 mL 8 mg subcut DAILY PRN Constipation 07/07/25 07/07/25 History subcutaneous syringe (Relistor) naloxone 4 mg/actuation nasal spray 1 spray intranasal Q3M PRN Opioid 07/07/25 07/07/25 History Overdose nystatin 100,000 unit/mL oral 1 ml PO QID 07/07/25 07/07/25 History suspension ondansetron 8 mg disintegrating 8 mg PO TID PRN Nausea And Vomiting 07/07/25 07/07/25 History tablet pantoprazole 40 mg tablet,delayed 40 mg PO BID 07/07/25 07/07/25 History release polyethylene glycol 3350 17 gram 17 g PO DAILY 07/07/25 07/07/25 History oral powder packet pregabalin 100 mg capsule 100 mg PO TID 07/07/25 07/07/25 History promethazine 25 mg tablet 25 mg PO QID PRN Nausea And 07/07/25 07/07/25 History Vomiting propranolol 20 mg tablet 20 mg PO BID 07/07/25 07/07/25 History sennosides 8.6 mg tablet (senna) 17.2 mg PO DAILY 07/07/25 07/07/25 History venlafaxine 75 mg tablet 75 mg PO DAILY 07/07/25 07/07/25 History zolpidem 10 mg tablet 10 mg PO HS PRN Insomnia 07/07/25 07/07/25 History budesonide 3 mg 9 mg (3 x 3 mg) PO QAM 14 days #42 07/12/25 Rx capsule,delayed,extended release ea dicyclomine 10 mg capsule 10 mg PO TID PRN Abdominal Pain 30 07/12/25 Rx days #60 caps mesalamine 1,000 mg rectal 1 g [place] HS 2 weeks #14 ea 07/12/25 Rx suppository Hospital Stay Data Consultations 07/07/25 20:50 ED Decision to Admit Stat 07/08/25 11:00 Consult Gastroenterology Routine 07/09/25 17:50 Consult Palliative Care Routine 07/10/25 10:18 Consult Infectious Diseases Routine Diagnostic Imagining Performed 07/08/25 01:05 CT Abd and Pelvis [CT abd pelvis IV con only] Urgent Pending Results Patient Have Any Pending Studies at Discharge: No Discharge Instructions Given to Patient (Per Discharging Provider) Continue budesonide and mesalamine for 2 weeks. If symptoms worsen, please follow up with the GI team. Please return if you develop persistent fevers, worsening abd pain, blood in stool. Total Time Total Time Spent Total Time Spent (In Minutes): 52
[2025-07-12 11:07] VITALS: O2SAT 95
--- NOTE | 2025-07-12 11:15 | Gastroenterology Progress Note ---
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 - Continue with Rowasa enemas and Budesonide. - Continue with Lactulose 20G QD PRN constipation. KUB with moderate stool retention. - She is reporting good BMs this morning and feels like she can go again here so she thinks this will be effective. - May also use tap water enema QD x 1 PRN as needed to help with BMs. - Thank you for allowing us to participate in the care of this patient. Please call with any acute changes, questions or concerns. Please see addendum below with additional recommendation from my supervising physician for further recommendations. . Admission and Anticipated Discharge Date Admission Date: July 07, 2025 Supervising Physician Co-Signing Physician Notes ding OK, would continue nudesonide and mesalamine for 2 weeks, can try off then if without symptoms..... ? self limited colits. 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 Patient returned to ER for ongoing bloody diarrhea. She was previously evaluated on recent admission with negative Stool PCR and C.diff. She underwent Colonoscopy at that time that revealed mild ulcerations and inflammation for proctitis/sigmoid area. She was suspected to have stercoral proctitis given reports of extreme constipation prior to arrival and passing of bowel movement. C.diff and Stool PCR repeated on 07/08 negative. Started on Rowasa enemas and Budesonide. Over the first few days her bleeding and diarrhea resolved. Then she started to feel constipated and bloated again. KUB revealed moderate retained stools. She was started on Lactulose 20gm QD PRN. She did have a large well formed bowel movement with some bright red blood. This was different than the previously described blood. She states this was more consistent with her hemorrhoids. Of note she did have some episodes of hypotension and fever of 100.4F. Infectious disease was consulted. Upon review and evaluation they suspect fever is from a non-infectious source and they recommend ongoing supportive treatment without antibiotics. She is able to eat and drink. No vomiting. No melena. Pertinent Diagnostics - KUB 07/11/25 - FINDINGS: Stable IUD. There is moderate retained stool. No bowel obstruction seen. No gross free air. Stable spinal degenerative changes. IMPRESSION: Moderate retained stool. CT abd/pelvis 07/08/25 IMPRESSION: Moderate diffuse mucosal edema is noted involving ileal loops with mild adjacent fat stranding, suggestive of enteritis changes. - new finding. Mural stratification with surrounding vascular congestion also seen in distal descending colon, sigmoid colon and rectum- possible colitis. Overall features point to the possibility of inflammatory bowel disease. Advised clinical correlation and further evaluation. Minimal pelvic ascites is noted. - new finding. Patchy sclerosis seen in pelvic bones and vertebrae. Stable. No other new interval abnormality since prior study. Colonoscopy 07/02/25 Findings: - The perianal examination was normal. - Internal hemorrhoids were found during retroflexion. The hemorrhoids were medium-sized. - Localized mild inflammation characterized by erythema, erosions and Ulcerations was found in the rectum and in the sigmoid colon. Biopsies were taken with a cold forceps for histology. - The exam was otherwise without abnormality. Impression: - Internal hemorrhoids. - Localized mild inflammation was found in the rectum and in the sigmoid colon secondary to colitis. Biopsied. ? MILD ISCHEMIA VS STERCORAL COLITIS - The examination was otherwise normal. Pathology A. Colon, sigmoid, "sigmoid colon inflammation biopsy" (biopsy): - Acute colitis (see comment). B. Rectum, "rectal inflammation biopsy" (biopsy): - Acute proctitis (see comment). Comment: The tissue submitted from the sigmoid colon and the rectum reveal similar histopathologic changes. The fragments of tissue from the sigmoid colon reveal more prominent edema but otherwise the fragments reveal moderate acute and chronic inflammation of the lamina propria, focal cryptitis, rare crypt abscesses, prominent edema, and a total lack of granulomatous inflammation. An ulcer with fibrinopurulent exudate is not seen. The primary diagnostic consideration is of course a self-limited/infect ious colitis, but the patient had an extensive evaluation recently and the BioFire test was negative. Similar histopathologic changes can be seen with stercoral colitis but it is usually associated with ulceration and granulation tissue. I do not favor an ischemic colitis in this case. Please note this case is reviewed in its entirety by one of my colleagues in the department of pathology and my colleague agrees with the diagnosis of acute colitis Review of Systems Review of Systems: See HPI Physical Exam Physical Exam: Constitutional: NAD. Alert. Answering questions appropriately. Respiratory: Breathing is even, non-labored. Lungs [place] are clear to auscultation anteriorly. Cardiovascular: Regular Rate and Rhythm, no murmurs, rubs or gallops appreciated. Gastrointestinal (Abdomen): Normoactive bowel sounds x4, soft. Mildy distended/bloated. Mild generalized tenderness more so on left/than right side. No rebound tenderness or guarding. Musculoskeletal: Lying in bed comfortably. No peripheral edema. Results & Data Results & Data Vital Signs (Past 12 Hours) Vital Signs Temp Pulse Pulse Resp BP Pulse Ox O2 Del Method 07/12/25 11:02 100.4 F H 117 H 20 117/77 95 Room Air 07/12/25 09:53 99.3 F 07/12/25 07:45 99.0 F 103 H 20 107/70 100 Room Air 07/12/25 05:55 88 07/12/25 03:04 98.8 F 95 H 18 115/78 99 Room Air 07/11/25 23:14 97.5 F L 86 18 106/70 96 Room Air PG Care Time/CCT Total # of Minutes Spent Total Time Spent with Patient: Total time spent is greater than 50% in coordination of care (as documented) at patient's floor/unit and/or counseling patient: Coding Level of Care Code 19223 SUB INP/OBS CARE 3/50MIN Diagnoses Colitis K52.9
[2025-07-12 12:27] VITALS: TEMP 99.9
[2025-07-12] MEDS: ACETAMINOPHEN 500 MG TAB PO ONE (14:14)
--- NOTE | 2025-07-12 14:46 | Palliative Care Progress Note ---
Date of Service July 12, 2025 Assessment & Plan (1) Cancer related pain: Plan: Continue methadone 20mg TID Dilaudid 6mg PO q4h PRN BTP - rarely using Bowel regimen for OIC in place (2) Diarrhea: Plan: Intermittent, colitis related (3) Encounter for monitoring cardiotoxic drug therapy: Plan: ekg q3mos for methadone monitoring (4) Generalized anxiety disorder with panic attacks: Plan: Ativan prn She is in need of a local counselor - has not made effort to locate as she prioritized finding counselor for her son Sal rees. Will ask Breast Cancer navigator to help. 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 (5) Therapeutic opioid-induced constipation (OIC): Plan: Bowel regimen as ordered Maintain hydration walk as much as possible adequate fiber intake + metamucil as needed (6) Palliative care by specialist: (7) Chronic, continuous use of opioids: (8) Chemotherapy-induced neuropathy: (9) Malignant neoplasm of breast metastatic to bone: (10) Nausea & vomiting: (11) Adenocarcinoma of breast metastatic to liver: (12) Metastatic cancer to bone: Plan As above RTC with me 2-3 weeks Thank you for allowing us to participate in the ongoing care of this patient. Please page with any additional concerns. Sekou Issa DNP Director, Palliative Medicine Admission and Anticipated Discharge Date Admission Date: July 07, 2025 Subjective Patsy is feeling better but still having a lot of GI symptoms with bloating, urgency. BMs are soft/formed and sometimes more "explosive" but not watery. Cancer pain well managed. reports pain level 0-1 with methadone at reduced dose of 20mg TID Anticipating dc home later today Review of Systems Review of Systems: All systems reviewed & are unremarkable except as noted in Subjective Physical Exam 2 Physical Exam: cushingoid facies - improved hair loss/+chemo alopecia Constitutional: + ill appearing, average body habitus an d comfortable Eyes: PERRL, conjunctivae normal, anicteric sclerae ENMT: external ear and nose normal, oropharynx normal Throat: uvula midline Neck: trachea midline; neck nontender thyroid surgically removed, well healed scar Respiratory: normal respiratory effort, lungs clear to auscultation able to speak in complete sentences and symmetric chest movement; no respiratory distress Auscultation: lungs clear to auscultation bilaterally Cardiovascular: Rate/Rhythm: regular rate and regular rhythm Vessels: no JVD Extremities: normal capillary refill and + pedal edema (+1 BLE, anklet snug) trace BLE edema, +tachy Chest (Breasts): Breast: + breast mass (right breast, anterior chest wall and axillary tail) Gastrointestinal (Abdomen): Inspection/Auscultation: + abdomen distended and normal bowel sounds Percussion/Palpation: + abdomen tender and + guarding (firm) Musculoskeletal: Head/Neck/Chest: normocephalic, head atraumatic, neck supple and + scalp tenderness (lesions from chemo face and scalp) Spine: + pain with cervical ROM Extremities: + limited ROM of extremities, + abnormal strength and + abnormal muscle tone Gait: + antalgic gait Skin: normal turgor, + rash, + lesion (left elbow-healing), + patchy alopecia and + hair sheds easily (chemo related) Neurologic: PERRL, EOMI, accommodation nl, no face palsy, no dysarthria Psychiatric: A+Ox3, euthymic affect Eye Contact: good eye contact Speech: normal rate/rhythm/volume of speech Mood: + depressed mood Thought Process: goal directed thought process Thought Content: + preoccupation Estimated Intelligence: consistent with education level Insight: good insight Judgment: good judgement Results & Data Vital Signs (Past 12 Hours) Vital Signs Temp Pulse Pulse Resp BP Pulse Ox O2 Del Method 07/12/25 13:16 98 H 07/12/25 12:26 37.7 C H 07/12/25 11:02 38.0 C H 117 H 20 117/77 95 Room Air 07/12/25 09:53 37.4 C 07/12/25 07:45 37.2 C 103 H 20 107/70 100 Room Air 07/12/25 05:55 88 07/12/25 03:04 37.1 C 95 H 18 115/78 99 Room Air Laboratory Results 07/12/25 07/11/25 07/10/25 Range/Units Unknown 07:46 06:12 WBC 2.76 L 2.48 L (4.8-10.8) K/ul RBC 2.39 L 2.33 L (4.20-5.40) M/uL Hgb 7.5 L 7.3 L (12.0-16.0) g/dl Hct 22.6 L 21.8 L (37.0-47.0) % MCV 94.6 93.6 (80.0-100.0) fL MCH 31.4 31.3 (25.0-34.0) pg MCHC 33.2 33.5 (32.0-36.0) g/dL RDW Std Deviation 60.8 H 59.2 H (36.4-46.3) fL RDW Coeff of Lesa 18.3 H 18.2 H (11.5-14.5) % Plt Count 116 L 118 L (130-400) K/uL MPV 9.1 L 9.0 L (9.4-12.4) fL Absolute Nucleated RBC 0.03 0.06 (0.00-0.12) K/uL Nucleated RBC % (auto) 1.1 2.4 % Neutrophils % (Manual) 75 70 % Lymphocytes % (Manual) 10 16 % Monocytes % (Manual) 2 4 % Eosinophils % (Manual) 9 4 % Basophils % (Manual) 2 % Metamyelocytes % (Man) 2 2 % Myelocytes % (Man) 2 2 % Neutrophils # (Manual) 2.07 1.74 (1.40-6.50) K/uL Total Absolute Neuts 2.07 1.74 (1.4-6.5) K/uL Lymphocytes # (Manual) 0.28 L 0.40 L (1.2-3.4) K/uL Total Abs Lymphocytes 0.28 L 0.40 L (1.2-3.4) K/uL Monocytes # (Manual) 0.06 L 0.10 L (0.11-0.59) K/uL Eosinophils # (Manual) 0.25 0.10 (0-0.50) K/uL Basophils # (Manual) 0.05 (0-0.2) K/uL Metamyelocytes # (Man) 0.06 H 0.05 H (0-0) K/uL Myelocytes # (Manual) 0.06 H 0.05 H (0-0) K/uL Toxic Granulation 1+ Toxic Vacuolation Dohle Bodies 1+ 1+ Polychromasia Anisocytosis Present Tear Drop Cells 1+ Ovalocytes 1+ Sodium 132 L 137 (136-145) mmol/L Potassium 3.4 L 3.3 L (3.5-5.1) mmol/L Chloride 98 103 (98-107) mmol/L Carbon Dioxide 28 30 (21-32) mmol/L Anion Gap 6 4 (3-11) BUN 5 L 4 L (6-23) mg/dl Creatinine 0.51 L 0.57 L (0.6-1.2) mg/dl Est Cr Clr Drug Dosing 160.7 143.7 ml/min eGFR 127.11 123.75 BUN/Creatinine Ratio 9.8 L 7.0 L (10-20) Glucose 97 89 (70-99(Fasting)) mg/dl POC Glucose (70-99) mg/dl Lactate (0.4-2.0) mmol/L Calcium 7.4 L 7.4 L (8.6-10.3) mg/dl Phosphorus 2.7 (2.5-4.9) mg/dl Magnesium 1.7 (1.7-2.4) mg/dl Total Bilirubin (0.2-1.0) mg/dl Direct Bilirubin (0-0.2) mg/dl AST (13-39) U/L ALT (7-52) U/L Alkaline Phosphatase (34-104) U/L Total Creatine Kinase (26-192) U/L Troponin I High Sens (0-14) pg/ml Total Protein (6.0-8.3) gm/dl Albumin (3.4-5.0) gm/dl Globulin (2.5-4.0) gm/dl Albumin/Globulin Ratio (0.9-2) TSH (0.300-4.500) uIu/ml Free T4 (0.61-1.60) ng/dl Urine Color Yellow Urine Appearance Clear (Clear) Urine pH 7.5 (4.5-7.5) Ur Specific [place] 1.007 (1.000-1.030) Urine Protein Negative (Negative) Urine Glucose (UA) Negative (Negative) Urine Ketones Negative (Negative) Urine Blood Negative (Negative) Urine Nitrite Negative (Negative) Urine Bilirubin Negative (Negative) Urine Urobilinogen Negative (Negative) Ur Leukocyte Esterase Trace H (Negative) Urine WBC (Auto) 0-5 (0-5) /hpf Urine RBC (Auto) 0-2 (0-2) /hpf U Hyaline Cast (Auto) 0-2 (0-2) /lpf U Epithel Cells (Auto) 0-2 (0-2) /hpf Urine Bacteria (Auto) None Seen (None Seen) Urine Comment Stl C. cayetanensis PCR (NotDetected) Stool Rotavirus A PCR (NotDetected) Stl Adenov F 40/41 PCR (NotDetected) Stool Astrovirus (PCR) (NotDetected) Stool Campylobacter PCR (NotDetected) Stl C. diff Tox B Gene (Neg) Stl C. diff 027-NAP1-BI Stool Cryptosporidium PCR (NotDetected) Stl E.coli Shiga Tox PCR (NotDetected) Stl Enterotoxigenic E PCR (NotDetected) Stool EPEC (PCR) (NotDetected) Stool EAEC (PCR) (NotDetected) Stl E. histolytica PCR (NotDetected) Stool Giardia Lamblia PCR (NotDetected) Stool Salmonella PCR (NotDetected) Stool Sapovirus (PCR) (NotDetected) Stl P. shigelloides PCR (NotDetected) Stl Shigella/EIEC PCR (NotDetected) St Y.enterocolitica PCR (NotDetected) Stool Vibrio (PCR) (NotDetected) Stl Vibrio cholerae PCR (NotDetected) Stl Norovirus GI/GII PCR (NotDetected) 07/09/25 07/08/25 07/08/25 Range/Units 06:02 05:32 02:06 WBC 3.25 L 4.05 L (4.8-10.8) K/ul RBC 2.43 L 2.90 L (4.20-5.40) M/uL Hgb 7.6 L 9.1 L (12.0-16.0) g/dl Hct 22.6 L 27.1 L (37.0-47.0) % MCV 93.0 93.4 (80.0-100.0) fL MCH 31.3 31.4 (25.0-34.0) pg MCHC 33.6 33.6 (32.0-36.0) g/dL RDW Std Deviation 59.1 H 59.7 H (36.4-46.3) fL RDW Coeff of Lesa 18.1 H 18.4 H (11.5-14.5) % Plt Count 104 L 115 L (130-400) K/uL MPV 9.2 L 8.9 L (9.4-12.4) fL Absolute Nucleated RBC 0.03 0.07 (0.00-0.12) K/uL Nucleated RBC % (auto) 0.9 1.7 % Neutrophils % (Manual) 56 58 % Lymphocytes % (Manual) 9 17 % Monocytes % (Manual) 5 8 % Eosinophils % (Manual) 7 11 % Basophils % (Manual) % Metamyelocytes % (Man) 10 4 % Myelocytes % (Man) 13 2 % Neutrophils # (Manual) 1.82 2.35 (1.40-6.50) K/uL Total Absolute Neuts 1.82 2.35 (1.4-6.5) K/uL Lymphocytes # (Manual) 0.29 L 0.69 L (1.2-3.4) K/uL Total Abs Lymphocytes 0.29 L 0.69 L (1.2-3.4) K/uL Monocytes # (Manual) 0.16 0.32 (0.11-0.59) K/uL Eosinophils # (Manual) 0.23 0.45 (0-0.50) K/uL Basophils # (Manual) (0-0.2) K/uL Metamyelocytes # (Man) 0.33 H 0.16 H (0-0) K/uL Myelocytes # (Manual) 0.42 H 0.08 H (0-0) K/uL Toxic Granulation 1+ Toxic Vacuolation 1+ Dohle Bodies 1+ 2+ Polychromasia 1+ Anisocytosis Tear Drop Cells 1+ 1+ Ovalocytes Sodium 132 L 133 L (136-145) mmol/L Potassium 3.7 4.0 (3.5-5.1) mmol/L Chloride 100 102 (98-107) mmol/L Carbon Dioxide 28 27 (21-32) mmol/L Anion Gap 4 4 (3-11) BUN 7 10 (6-23) mg/dl Creatinine 0.49 L 0.58 L (0.6-1.2) mg/dl Est Cr Clr Drug Dosing 167.2 141.3 ml/min eGFR 128.34 123.23 BUN/Creatinine Ratio 14.3 17.2 (10-20) Glucose 88 99 (70-99(Fasting)) mg/dl POC Glucose 112 H (70-99) mg/dl Lactate (0.4-2.0) mmol/L Calcium 7.6 L 7.7 L (8.6-10.3) mg/dl Phosphorus 2.4 L (2.5-4.9) mg/dl Magnesium 1.8 2.1 (1.7-2.4) mg/dl Total Bilirubin 1.5 H (0.2-1.0) mg/dl Direct Bilirubin 0.6 H (0-0.2) mg/dl AST 10 L (13-39) U/L ALT 20 (7-52) U/L Alkaline Phosphatase 51 (34-104) U/L Total Creatine Kinase (26-192) U/L Troponin I High Sens (0-14) pg/ml Total Protein 4.5 L (6.0-8.3) gm/dl Albumin 2.3 L (3.4-5.0) gm/dl Globulin (2.5-4.0) gm/dl Albumin/Globulin Ratio (0.9-2) TSH (0.300-4.500) uIu/ml Free T4 (0.61-1.60) ng/dl Urine Color Urine Appearance (Clear) Urine pH (4.5-7.5) Ur Specific [place] (1.000-1.030) Urine Protein (Negative) Urine Glucose (UA) (Negative) Urine Ketones (Negative) Urine Blood (Negative) Urine Nitrite (Negative) Urine Bilirubin (Negative) Urine Urobilinogen (Negative) Ur Leukocyte Esterase (Negative) Urine WBC (Auto) (0-5) /hpf Urine RBC (Auto) (0-2) /hpf U Hyaline Cast (Auto) (0-2) /lpf U Epithel Cells (Auto) (0-2) /hpf Urine Bacteria (Auto) (None Seen) Urine Comment Stl C. cayetanensis PCR (NotDetected) Stool Rotavirus A PCR (NotDetected) Stl Adenov F 40/41 PCR (NotDetected) Stool Astrovirus (PCR) (NotDetected) Stool Campylobacter PCR (NotDetected) Stl C. diff Tox B Gene (Neg) Stl C. diff 027-NAP1-BI Stool Cryptosporidium PCR (NotDetected) Stl E.coli Shiga Tox PCR (NotDetected) Stl Enterotoxigenic E PCR (NotDetected) Stool EPEC (PCR) (NotDetected) Stool EAEC (PCR) (NotDetected) Stl E. histolytica PCR (NotDetected) Stool Giardia Lamblia PCR (NotDetected) Stool Salmonella PCR (NotDetected) Stool Sapovirus (PCR) (NotDetected) Stl P. shigelloides PCR (NotDetected) Stl Shigella/EIEC PCR (NotDetected) St Y.enterocolitica PCR (NotDetected) Stool Vibrio (PCR) (NotDetected) Stl Vibrio cholerae PCR (NotDetected) Stl Norovirus GI/GII PCR (NotDetected) 07/08/25 07/07/25 Range/Units 01:17 19:57 WBC 3.85 L (4.8-10.8) K/ul RBC 3.37 L (4.20-5.40) M/uL Hgb 10.6 L (12.0-16.0) g/dl Hct 31.2 L (37.0-47.0) % MCV 92.6 (80.0-100.0) fL MCH 31.5 (25.0-34.0) pg MCHC 34.0 (32.0-36.0) g/dL RDW Std Deviation 59.1 H (36.4-46.3) fL RDW Coeff of Lesa 18.5 H (11.5-14.5) % Plt Count 123 L (130-400) K/uL MPV 9.0 L (9.4-12.4) fL Absolute Nucleated RBC 0.13 H (0.00-0.12) K/uL Nucleated RBC % (auto) 3.4 % Neutrophils % (Manual) 44 % Lymphocytes % (Manual) 25 % Monocytes % (Manual) 8 % Eosinophils % (Manual) 16 % Basophils % (Manual) % Metamyelocytes % (Man) 2 % Myelocytes % (Man) 5 % Neutrophils # (Manual) 1.69 (1.40-6.50) K/uL Total Absolute Neuts 1.69 (1.4-6.5) K/uL Lymphocytes # (Manual) 0.96 L (1.2-3.4) K/uL Total Abs Lymphocytes 0.96 L (1.2-3.4) K/uL Monocytes # (Manual) 0.31 (0.11-0.59) K/uL Eosinophils # (Manual) 0.62 H (0-0.50) K/uL Basophils # (Manual) (0-0.2) K/uL Metamyelocytes # (Man) 0.08 H (0-0) K/uL Myelocytes # (Manual) 0.19 H (0-0) K/uL Toxic Granulation Toxic Vacuolation 2+ Dohle Bodies 1+ Polychromasia 1+ Anisocytosis Tear Drop Cells Ovalocytes Sodium 131 L (136-145) mmol/L Potassium 3.5 (3.5-5.1) mmol/L Chloride 98 (98-107) mmol/L Carbon Dioxide 26 (21-32) mmol/L Anion Gap 7 (3-11) BUN 12 (6-23) mg/dl Creatinine 0.67 (0.6-1.2) mg/dl Est Cr Clr Drug Dosing 122.3 ml/min eGFR 119.02 BUN/Creatinine Ratio 17.9 (10-20) Glucose 100 H (70-99(Fasting)) mg/dl POC Glucose (70-99) mg/dl Lactate 1.0 (0.4-2.0) mmol/L Calcium 7.5 L (8.6-10.3) mg/dl Phosphorus (2.5-4.9) mg/dl Magnesium 1.7 (1.7-2.4) mg/dl Total Bilirubin 1.9 H (0.2-1.0) mg/dl Direct Bilirubin (0-0.2) mg/dl AST 12 L (13-39) U/L ALT 26 (7-52) U/L Alkaline Phosphatase 63 (34-104) U/L Total Creatine Kinase 45 (26-192) U/L Troponin I High Sens 6.0 (0-14) pg/ml Total Protein 5.0 L (6.0-8.3) gm/dl Albumin 2.5 L (3.4-5.0) gm/dl Globulin 2.5 (2.5-4.0) gm/dl Albumin/Globulin Ratio 1.0 (0.9-2) TSH 5.575 H (0.300-4.500) uIu/ml Free T4 0.87 (0.61-1.60) ng/dl Urine Color [place] Urine Appearance Clear (Clear) Urine pH 5.5 (4.5-7.5) Ur Specific [place] 1.020 (1.000-1.030) Urine Protein 1+ H (Negative) Urine Glucose (UA) Negative (Negative) Urine Ketones 1+ H (Negative) Urine Blood Negative (Negative) Urine Nitrite Negative (Negative) Urine Bilirubin 1+ H (Negative) Urine Urobilinogen Negative (Negative) Ur Leukocyte Esterase Trace H (Negative) Urine WBC (Auto) 0-5 (0-5) /hpf Urine RBC (Auto) 0-2 (0-2) /hpf U Hyaline Cast (Auto) 0-2 (0-2) /lpf U Epithel Cells (Auto) 3-5 H (0-2) /hpf Urine Bacteria (Auto) None Seen (None Seen) Urine Comment Stl C. cayetanensis PCR Not Detected (NotDetected) Stool Rotavirus A PCR Not Detected (NotDetected) Stl Adenov F 40/41 PCR Not Detected (NotDetected) Stool Astrovirus (PCR) Not Detected (NotDetected) Stool Campylobacter PCR Not Detected (NotDetected) Stl C. diff Tox B Gene Negative Cdiff Gene (Neg) Stl C. diff 027-NAP1-BI NEGATIVE Stool Cryptosporidium PCR Not Detected (NotDetected) Stl E.coli Shiga Tox PCR Not Detected (NotDetected) Stl Enterotoxigenic E PCR Not Detected (NotDetected) Stool EPEC (PCR) Not Detected (NotDetected) Stool EAEC (PCR) Not Detected (NotDetected) Stl E. histolytica PCR Not Detected (NotDetected) Stool Giardia Lamblia PCR Not Detected (NotDetected) Stool Salmonella PCR Not Detected (NotDetected) Stool Sapovirus (PCR) Not Detected (NotDetected) Stl P. shigelloides PCR Not Detected (NotDetected) Stl Shigella/EIEC PCR Not Detected (NotDetected) St Y.enterocolitica PCR Not Detected (NotDetected) Stool Vibrio (PCR) Not Detected (NotDetected) Stl Vibrio cholerae PCR Not Detected (NotDetected) Stl Norovirus GI/GII PCR Not Detected (NotDetected) Diagnostic Findings Chest X-Ray 07/07/25 19:33 Exam(s): XR CXR 1 VIEW EXAM: XR Chest, 1 View CLINICAL HISTORY: Reason for exam: weakness. TECHNIQUE: Frontal view of the chest. COMPARISON: July 05, 2025. FINDINGS: Lungs: Unremarkable. No acute infiltration, atelectasis or mass. Pleural space: Unremarkable. No pneumothorax or pleural fluid. Heart: Unremarkable. No cardiomegaly. Mediastinum: Unremarkable. Normal mediastinal contour. Bones/joints: No acute findings. Tubes, lines and devices: An infusion port and catheter are stable. IMPRESSION: No acute findings in the chest. Electronically signed by: Reza Cortez MD 07/07/25 22:51 PM Abdomen/Pelvis CT 07/08/25 01:05 EXAM: CT abd pelvis IV con only CLINICAL HISTORY: abd pain, mild rectal bleed TECHNIQUE: Contiguous axial images were obtained from the level of the diaphragm to the pubic symphysis with intravenous contrast. Coronal and sagittal reconstructions were likewise performed and were indicated to increase the sensitivity for detecting clinically relevant pathology. If IV contrast material had not been administered, the likelihood of detecting abnormalities relevant to the patient's condition would have been substantially decreased. The CT scan was performed according to ALARA (as low as reasonably achievable). COMPARISON: 20:01:53 [employer] . FINDINGS: The visualized lung bases are clear. The liver is normal in size and attenuation. No focal liver lesions are seen. There is no intra- or extrahepatic biliary ductal dilatation. Hepatic vasculature is patent. The gallbladder is present. The spleen, pancreas, and adrenal glands are unremarkable. The kidneys are normal in size and attenuation. There is no hydronephrosis or perinephric fat stranding. No renal calculi or renal masses are identified. The ureters are normal in caliber, and no ureteral calculi are seen. The bladder is normal in contour. Pelvic viscera are unremarkable. IUCD is seen in situ. No focal or diffuse bowel wall thickening or evidence of bowel obstruction is identified. There is no imaging evidence of appendicitis. Abdominal and pelvic vasculature is patent. No aggressive appearing osseous lesions are identified. Patchy sclerosis seen in pelvic bones and vertebrae. Moderate diffuse mucosal edema is noted involving ileal loops with mild adjacent fat stranding, suggestive of enteritis changes. Mural stratification with surrounding vascular congestion also seen in distal descending colon, sigmoid colon and rectum- possible colitis. Minimal pelvic ascites is noted. IMPRESSION: Moderate diffuse mucosal edema is noted involving ileal loops with mild adjacent fat stranding, suggestive of enteritis changes. - new finding. Mural stratification with surrounding vascular congestion also seen in distal descending colon, sigmoid colon and rectum- possible colitis. Overall features point to the possibility of inflammatory bowel disease. Advised clinical correlation and further evaluation. Minimal pelvic ascites is noted. - new finding. Patchy sclerosis seen in pelvic bones and vertebrae. Stable. No other new interval abnormality since prior study. Electronically signed by Joe Limon 07-08-2025 03:58 AM KUB X-Ray 07/11/25 11:12 KUB HISTORY: Assess stool burden COMPARISON STUDY: 06/20/2025 x-ray and CT of 07/08/2025 FINDINGS: Stable IUD. There is moderate retained stool. No bowel obstruction seen. No gross free air. Stable spinal degenerative changes. IMPRESSION: Moderate retained stool. ACT 112: Negative or not required by law. The above report was generated using voice recognition software. It may contain grammatical, syntax or spelling errors. Electronically signed by: Mushtaq Corona M.D. 07/11/2025 12:47 PM PG Care Time/CCT Total # of Minutes Spent Total Time Spent: 45 Total Time Spent with Patient: Total time spent is greater than 50% in coordination of care (as documented) at patient's floor/unit and/or counseling patient: [place] [address] SUB INP/OBS CARE 3/50MIN Patient Type Established History Comprehensive Exam Comprehensive Medical Decision Making High Complexity Diagnoses Cancer related pain G89.3 Diarrhea R19.7 Diarrhea type: unspecified type Encounter for monitoring cardiotoxic drug therapy Z51.81; Z79.899 Generalized anxiety disorder with panic attacks F41.1; F41.0 Therapeutic opioid-induced constipation (OIC) K59.03; T40.2X5A Palliative care by specialist Z51.5 Chronic, continuous use of opioids F11.90 Chemotherapy-induced neuropathy G62.0; T45.1X5A Malignant neoplasm of breast metastatic to bone C50.919; C79.51 Nausea & vomiting R11.2 Adenocarcinoma of breast metastatic to liver C50.919; C78.7 Metastatic cancer to bone C79.51 (2) Diarrhea Diarrhea type: unspecified type Qualified Code(s): R19.7 - Diarrhea, unspecified
[2025-07-12 15:26] VITALS: BP 109/66; PULSE 102
[2025-07-12] MEDS: HEPARIN 100 UNIT/ML 5ML FLUSH FLUSH PRN (15:40)
== END 2025-07-12 18:01 | disposition home or self-care (01) | DRG 391 ==
LOC: ED 19:16 → SUATTDRO 23:41 → EDINP 23:41 → 2S 07-08 00:09
DX: G89.3 Neoplasm related pain (acute) (chronic); E86.0 Dehydration; R00.0 Tachycardia, unspecified; Z80.3 Family history of malignant neoplasm of breast; Z92.3 Personal history of irradiation; Z79.890 Hormone replacement therapy; T45.1X5A Adverse effect of antineoplastic and immunosuppressive drugs, initial encounter; F41.9 Anxiety disorder, unspecified; Y92.019 Unspecified place in single-family (private) house as the place of occurrence of the external cause; F32.9 Major depressive disorder, single episode, unspecified; F17.290 Nicotine dependence, other tobacco product, uncomplicated; Z85.850 Personal history of malignant neoplasm of thyroid; C79.51 Secondary malignant neoplasm of bone; K52.89 Other specified noninfective gastroenteritis and colitis; C78.7 Secondary malignant neoplasm of liver and intrahepatic bile duct; D84.9 Immunodeficiency, unspecified; E89.0 Postprocedural hypothyroidism; E87.6 Hypokalemia; K62.89 Other specified diseases of anus and rectum; Z88.1 Allergy status to other antibiotic agents; E83.51 Hypocalcemia; C50.911 Malignant neoplasm of unspecified site of right female breast; E87.1 Hypo-osmolality and hyponatremia; D61.810 Antineoplastic chemotherapy induced pancytopenia; U07.0 Vaping-related disorder